=== PATIENT | female | born 1960 | race Hispanic/Latino ===

== ENCOUNTER 2021-08-11 15:52 | Emergency (ER) | payer OTHER ==
--- OUTSIDE RECORDS SUMMARY | 2021-08-11 15:56 | XMS REPORT | Continuity of Care Document ---
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 2020-01-24 30.11 kg/m2 [facility] 16:38:00 of Medicine Systolic blood 2019-11-18 143 mm[Hg] [facility] [employer] pressure 14:26:00 of Medicine Diastolic blood 2019-11-18 81 mm[Hg] [facility] pressure 14:26:00 of Medicine Heart rate 2019-11-18 58 /min [facility] 14:26:00 of Medicine Body weight 2019-11-18 72.576 kg [facility] 14:26:00 of Medicine BMI 2019-11-18 28.34 kg/m2 [facility] 14:26:00 of Medicine Systolic blood 2019-11-15 138 mm[Hg] [facility] [employer] pressure 15:53:00 of Medicine Diastolic blood 2019-11-15 81 mm[Hg] [facility] pressure 15:53:00 of Medicine Heart rate 2019-11-15 67 /min [facility] 15:53:00 of Medicine Body height 2019-11-15 160 cm [facility] 15:53:00 of Medicine Body weight 2019-11-15 72.576 kg [facility] 15:53:00 of Medicine BMI 2019-11-15 28.34 kg/m2 [facility] 15:53:00 of Medicine Procedures Procedure Date / Time Performed Performing Clinician Sourc e JAYLENE SCOPE 2021-06-03 17:25:00 Kasey Villar [facility] Lina egashley of [place] [facility] POCT URINALYSIS 2021-02-07 00:00:00 Jan [facility] of DIPSTICK Medicine AYAKA,POST-VOID 2021-02-07 00:00:00 Jan [facility] of RES,US,NON-IMG Medicine BASIC METABOLIC PANEL 2020-02-07 17:00:00 Jna Woodson [facility] LARYNGOSCOPY, 2019-11-15 17:55:00 Anselmo Lobo [facility] Jose Roberto hubbard of FLEXIBLE; DIAGNOSTIC Medicine Plan of Care Planned Activity Planned Date Details Comments Source Future Scheduled 2022-02-07 RENAL BILATERAL Expected: [facility] Test 00:00:00 [code = 64494] 02/07/2022 of Medicine (Approximate), Expires: 03/09/2022 Future Scheduled 2021-07-16 MRI LUMBAR SPINE WO 1 Occurrences [facility] Test 12:16:10 CONTRAST [code = starting of Medicine 84357-0] 07/16/2021 until 07/16/2022 Future Scheduled 2021-07-16 Screening for malignant [facility] Test 11:17:16 neoplasm of colon of Medicin e (procedure) [code = 188339831] Future Scheduled 2021-07-16 BMI FOLLOW UP PLAN [facility] [place] Test 11:17:16 [code = BMI FOLLOW UP of Med icine PLAN] Future Scheduled 2021-07-16 Hepatitis C screening [facility] Test 11:17:16 (procedure) [code = of Medic ine 963186410] Future Scheduled 2021-07-16 Human immunodeficiency B [facility] Test 11:17:16 virus screening of Medicine (procedure) [code = 769028013] Future Scheduled 2021-07-16 ZOSTER VACCINE (1 of 2) [facility] Test 11:17:16 [code = ZOSTER VACCINE of Me dicine (1 of 2)] Future Scheduled 2021-07-16 Screening for malignant [facility] Test 11:17:16 neoplasm of breast of Medici ne (procedure) [code = 771912234] Future Scheduled 2021-07-16 FLU VACCINE > 6 MONTHS [employer] Test 11:17:16 [code = FLU VACCINE > 6 of M edicine MONTHS] Future Scheduled 2021-07-16 COVID-19 Vaccine (3 - [employer] Test 11:17:16 Booster for Pfizer of Medici ne series) [code = COVID-19 Vaccine (3 - Booster for Pfizer series)] Future Scheduled 2021-07-16 Screening for malignant [facility] Test 11:17:16 neoplasm of cervix of Medici ne (procedure) [code = 993320148] Future Scheduled 2021-07-16 TETANUS SHOT (ADULT) [employer] [facility] Test 11:17:16 [code = TETANUS SHOT of Medi cine (ADULT)] Future Scheduled 2021-07-10 CT SINUS W FUSION [code 1 Occurrences [facility] Test 11:48:04 = 30414] starting of Medicine 07/10/2021 until 07/10/2022 Future Scheduled 2021-07-10 Screening for malignant [facility] [employer] Test 11:21:08 neoplasm of colon of Medicin e (procedure) [code = 655113083] Future Scheduled 2021-07-10 BMI FOLLOW UP PLAN [facility] Test 11:21:08 [code = BMI FOLLOW UP of Med icine PLAN] Future Scheduled 2021-07-10 Hepatitis C screening [facility] Test 11:21:08 (procedure) [code = of Medic ine 795644535] Future Scheduled 2021-07-10 Human immunodeficiency B [facility] Test 11:21:08 virus screening of Medicine (procedure) [code = 181138002] Future Scheduled 2021-07-10 ZOSTER VACCINE (1 of 2) [facility] [employer] Test 11:21:08 [code = ZOSTER VACCINE of Me dicine (1 of 2)] Future Scheduled 2021-07-10 Screening for malignant [facility] [employer] Test 11:21:08 neoplasm of breast of Medici ne (procedure) [code = 705602216] Future Scheduled 2021-07-10 FLU VACCINE > 6 MONTHS [employer] Test 11:21:08 [code = FLU VACCINE > 6 of M edicine MONTHS] Future Scheduled 2021-07-10 Screening for malignant [facility] [employer] Test 11:21:08 neoplasm of cervix of Medici ne (procedure) [code = 550820350] Future Scheduled 2021-07-10 TETANUS SHOT (ADULT) [employer] Test 11:21:08 [code = TETANUS SHOT of Medi cine (ADULT)] Future Scheduled 2021-06-03 Screening for malignant [facility] [employer] Test 12:27:02 neoplasm of colon of Medicin e (procedure) [code = 191871738] Future Scheduled 2021-06-03 BMI FOLLOW UP PLAN [employer] Test 12:27:02 [code = BMI FOLLOW UP of Med icine PLAN] Future Scheduled 2021-06-03 Hepatitis C screening [employer] Test 12:27:02 (procedure) [code = of Medic ine 646825433] Future Scheduled 2021-06-03 Human immunodeficiency [employer] Test 12:27:02 virus screening of Medicine (procedure) [code = 587244416] Future Scheduled 2021-06-03 ZOSTER VACCINE (1 of 2) [employer] Test 12:27:02 [code = ZOSTER VACCINE of Me dicine (1 of 2)] Future Scheduled 2021-06-03 Screening for malignant [facility] [employer] Test 12:27:02 neoplasm of breast of Medici ne (procedure) [code = 937932535] Future Scheduled 2021-06-03 FLU VACCINE > 6 MONTHS [employer] Test 12:27:02 [code = FLU VACCINE > 6 of M edicine MONTHS] Future Scheduled 2021-06-03 Screening for malignant [facility] [employer] Test 12:27:02 neoplasm of cervix of Medici ne (procedure) [code = 259630831] Future Scheduled 2021-06-03 TETANUS SHOT (ADULT) [employer] Test 12:27:02 [code = TETANUS SHOT of Medi cine (ADULT)] Future Scheduled 2021-06-03 Screening for malignant [facility] [employer] Test 12:27:02 neoplasm of colon of Medicin e (procedure) [code = 223449330] Future Scheduled 2021-06-03 BMI FOLLOW UP PLAN [employer] Test 12:27:02 [code = BMI FOLLOW UP of Med icine PLAN] Future Scheduled 2021-06-03 Hepatitis C screening [employer] Test 12:27:02 (procedure) [code = of Medic ine 263524990] Future Scheduled 2021-06-03 Human immunodeficiency [employer] Test 12:27:02 virus screening of Medicine (procedure) [code = 716717223] Future Scheduled 2021-06-03 ZOSTER VACCINE (1 of 2) [facility] Test 12:27:02 [code = ZOSTER VACCINE of Me dicine (1 of 2)] Future Scheduled 2021-06-03 Screening for malignant [facility] Test 12:27:02 neoplasm of breast of Medici ne (procedure) [code = 359250746] Future Scheduled 2021-06-03 FLU VACCINE > 6 MONTHS [facility] Test 12:27:02 [code = FLU VACCINE > 6 of M edicine MONTHS] Future Scheduled 2021-06-03 Screening for malignant [facility] Test 12:27:02 neoplasm of cervix of Medici ne (procedure) [code = 822191157] Future Scheduled 2021-06-03 TETANUS SHOT (ADULT) [facility] Test 12:27:02 [code = TETANUS SHOT of Medi cine (ADULT)] Future Scheduled 2021-05-27 [facility] IGE [code = Ordered: [facility] Test 12:27:33 NOCPT] 05/27/2021 of Medicine Future Scheduled 2021-05-27 IGE [code = 85310-9] Ordered: [facility] [employer] Test 12:27:33 05/27/2021 of Medicine Future Scheduled 2021-05-27 [facility] IGE [code = Ordered: [facility] Test 12:27:33 NOCPT] 05/27/2021 of Medicine Future Scheduled 2021-05-27 IGE [code = 72868-2] Ordered: [facility] [employer] Test 12:27:33 05/27/2021 of Medicine Future Scheduled 2021-05-27 DC PERCUTANEOUS TESTS Ordered: [employer] Test 12:01:12 W/ALLERGENIC EXTRACTS 05/27/2021 of Med icine [code = 10587] Future Scheduled 2021-05-27 DC PERCUTANEOUS TESTS Ordered: [employer] Test 12:01:12 W/ALLERGENIC EXTRACTS 05/27/2021 of Med icine [code = 41408] Future Scheduled 2021-05-27 Screening for malignant [facility] Test 10:54:41 neoplasm of colon of Medicin e (procedure) [code = 055594224] Future Scheduled 2021-05-27 BMI FOLLOW UP PLAN [facility] Test 10:54:41 [code = BMI FOLLOW UP of Med icine PLAN] Future Scheduled 2021-05-27 Hepatitis C screening [employer] Test 10:54:41 (procedure) [code = of Medic ine 364226808] Future Scheduled 2021-05-27 Human immunodeficiency [employer] Test 10:54:41 virus screening of Medicine (procedure) [code = 523803212] Future Scheduled 2021-05-27 ZOSTER VACCINE (1 of 2) [facility] Test 10:54:41 [code = ZOSTER VACCINE of Me dicine (1 of 2)] Future Scheduled 2021-05-27 Screening for malignant [facility] [employer] Test 10:54:41 neoplasm of breast of Medici ne (procedure) [code = 160627938] Future Scheduled 2021-05-27 FLU VACCINE > 6 MONTHS [employer] Test 10:54:41 [code = FLU VACCINE > 6 of M edicine MONTHS] Future Scheduled 2021-05-27 Screening for malignant [facility] [employer] Test 10:54:41 neoplasm of cervix of Medici ne (procedure) [code = 559434965] Future Scheduled 2021-05-27 TETANUS SHOT (ADULT) [facility] Test 10:54:41 [code = TETANUS SHOT of Medi cine (ADULT)] Future Scheduled 2021-05-27 Screening for malignant [facility] [employer] Test 10:54:41 neoplasm of colon of Medicin e (procedure) [code = 982475130] Future Scheduled 2021-05-27 BMI FOLLOW UP PLAN [facility] [employer] [facility] 10:54:41 [code = BMI FOLLOW UP of Med icine PLAN] Future Scheduled 2021-05-27 Hepatitis C screening [facility] [employer] Test 10:54:41 (procedure) [code = of Medic ine 932191065] Future Scheduled 2021-05-27 Human immunodeficiency [employer] Test 10:54:41 virus screening of Medicine (procedure) [code = 210653177] Future Scheduled 2021-05-27 ZOSTER VACCINE (1 of 2) [employer] Test 10:54:41 [code = ZOSTER VACCINE of Me dicine (1 of 2)] Future Scheduled 2021-05-27 Screening for malignant [facility] [employer] Test 10:54:41 neoplasm of breast of Medici ne (procedure) [code = 420647555] Future Scheduled 2021-05-27 FLU VACCINE > 6 MONTHS [employer] Test 10:54:41 [code = FLU VACCINE > 6 of M edicine MONTHS] Future Scheduled 2021-05-27 Screening for malignant [employer] Test 10:54:41 neoplasm of cervix of Medici ne (procedure) [code = 810411687] Future Scheduled 2021-05-27 TETANUS SHOT (ADULT) [employer] Test 10:54:41 [code = TETANUS SHOT of Medi cine (ADULT)] Future Scheduled 2021-05-16 Screening for malignant [facility] [employer] Test 13:31:36 neoplasm of colon of Medicin e (procedure) [code = 177854415] Future Scheduled 2021-05-16 BMI FOLLOW UP PLAN [employer] Test 13:31:36 [code = BMI FOLLOW UP of Med icine PLAN] Future Scheduled 2021-05-16 Hepatitis C screening [employer] Test 13:31:36 (procedure) [code = of Medic ine 242313482] Future Scheduled 2021-05-16 Human immunodeficiency [facility] Test 13:31:36 virus screening of Medicine (procedure) [code = 784182429] Future Scheduled 2021-05-16 ZOSTER VACCINE (1 of 2) [facility] [employer] Test 13:31:36 [code = ZOSTER VACCINE of Ut dicine (1 of 2)] Future Scheduled 2021-05-16 Screening for malignant [facility] [employer] Test 13:31:36 neoplasm of breast of Medici ne (procedure) [code = 468569519] Future Scheduled 2021-05-16 FLU VACCINE > 6 MONTHS [employer] Test 13:31:36 [code = FLU VACCINE > 6 of M edicine MONTHS] Future Scheduled 2021-05-16 Screening for malignant [facility] [employer] Test 13:31:36 neoplasm of cervix of Medici ne (procedure) [code = 437919324] Future Scheduled 2021-05-16 TETANUS SHOT (ADULT) [employer] Test 13:31:36 [code = TETANUS SHOT of Medi cine (ADULT)] Future Scheduled 2021-05-16 Screening for malignant [facility] [employer] Test 13:31:36 neoplasm of colon of Medicin e (procedure) [code = 689878678] Future Scheduled 2021-05-16 BMI FOLLOW UP PLAN [employer] Test 13:31:36 [code = BMI FOLLOW UP of Med icine PLAN] Future Scheduled 2021-05-16 Hepatitis C screening [employer] Test 13:31:36 (procedure) [code = of Medic ine 368618283] Future Scheduled 2021-05-16 Human immunodeficiency [employer] Test 13:31:36 virus screening of Medicine (procedure) [code = 753967717] Future Scheduled 2021-05-16 ZOSTER VACCINE (1 of 2) [facility] [employer] Test 13:31:36 [code = ZOSTER VACCINE of Me dicine (1 of 2)] Future Scheduled 2021-05-16 Screening for malignant [facility] Test 13:31:36 neoplasm of breast of Medici ne (procedure) [code = 856106648] Future Scheduled 2021-05-16 FLU VACCINE > 6 MONTHS [employer] Test 13:31:36 [code = FLU VACCINE > 6 of M edicine MONTHS] Future Scheduled 2021-05-16 Screening for malignant [facility] Test 13:31:36 neoplasm of cervix of Medici ne (procedure) [code = 902974983] Future Scheduled 2021-05-16 TETANUS SHOT (ADULT) [facility] Test 13:31:36 [code = TETANUS SHOT of Medi cine (ADULT)] Future Scheduled 2021-02-07 Screening for malignant [facility] Test 13:04:50 neoplasm of colon of Medicin e (procedure) [code = 130811413] Future Scheduled 2021-02-07 [facility] FOLLOW UP PL[facility] Test 13:04:50 [code = BMI FOLLOW UP of Med icine PLAN] Future Scheduled 2021-02-07 Hepatitis C screening [facility] Test 13:04:50 (procedure) [code = of Medic ine 295136962] Future Scheduled 2021-02-07 [facility] 13:04:[facility] virus screening of Medicine (procedure) [code = 129355368] Future Scheduled 2021-02-07 ZOSTER VACCINE (1 of 2) [facility] Test 13:04:50 [code = ZOSTER VACCINE of Me dicine (1 of 2)] Future Scheduled 2021-02-07 [facility] 13:04:50 neoplasm of breast of Medici ne (procedure) [code = 043620180] Future Scheduled 2021-02-07 FLU VACCINE > 6 MONTHS [employer] Test 13:04:50 [code = FLU VACCINE > 6 of M edicine MONTHS] Future Scheduled 2021-02-07 Screening for malignant [facility] Test 13:04:50 neoplasm of cervix of Medici ne (procedure) [code = 806742092] Future Scheduled 2021-02-07 TETANUS SHOT (ADULT) [employer] Test 13:04:50 [code = TETANUS SHOT of Medi cine (ADULT)] Future Scheduled 2021-02-07 BASIC METABOLIC PANEL Ordered: [employer] Test 11:54:43 [code = 19815-2] 02/07/2021 of Medicine Diagnostic Test 2021-02-06 US RENAL BILATERAL Expected: [facility] Pending 00:00:00 [code = 55315] 02/06/2021 of Medicine (Approximate), Expires: 03/08/2021 Future Scheduled COLON CANCER SCREENING: [facility] Test COLONOSCOPY [code = of Medic ine COLON CANCER SCREENING: COLONOSCOPY] Future Scheduled BMI FOLLOW UP PLAN [employer] Test [code = BMI FOLLOW UP of Med icine PLAN] Future Scheduled HEPATITIS C SCREENING [employer] Test [code = HEPATITIS C of Medic ine SCREENING] Future Scheduled HIV SCREENING [code = [employer] [facility] HIV SCREENING] of Medicine Future Scheduled FLU VACCINE > 6 MONTHS [employer] Test [code = FLU VACCINE > 6 of M edicine MONTHS] Future Scheduled MAMMOGRAM ANNUAL [code [employer] Test = MAMMOGRAM ANNUAL] of Medic ine Future Scheduled CERVICAL CANCER [facility] Test SCREENING 3 YEAR FOLLOW of M edicine UP [code = CERVICAL CANCER SCREENING 3 YEAR FOLLOW UP] Future Scheduled TETANUS SHOT (ADULT) [employer] Test [code = TETANUS SHOT of Medi cine (ADULT)] Future Scheduled COLON CANCER SCREENING: [facility] Test COLONOSCOPY [code = of Medic ine COLON CANCER SCREENING: COLONOSCOPY] Future Scheduled BMI FOLLOW UP PLAN [employer] Test [code = BMI FOLLOW UP of Med icine PLAN] Future Scheduled HEPATITIS C SCREENING [employer] Test [code = HEPATITIS C of Medic ine SCREENING] Future Scheduled HIV SCREENING [code = [employer] [facility] HIV SCREENING] of Medicine Future Scheduled FLU VACCINE > 6 MONTHS [employer] Test [code = FLU VACCINE > 6 of M edicine MONTHS] Future Scheduled MAMMOGRAM ANNUAL [code [employer] Test = MAMMOGRAM ANNUAL] of Medic ine Future Scheduled CERVICAL CANCER [facility] Test SCREENING 3 YEAR FOLLOW of M edicine UP [code = CERVICAL CANCER SCREENING 3 YEAR FOLLOW UP] Future Scheduled TETANUS SHOT (ADULT) [employer] Test [code = TETANUS SHOT of Medi cine (ADULT)] Future Scheduled LARYNGOSCOPY, FLEXIBLE Ordered: [employer] Test OR RIGID TELESCOPIC, 01/24/2020 of Medi cine WITH STROBOSCOPY [code = 57334] Future Scheduled COLON CANCER SCREENING: [facility] Test COLONOSCOPY [code = of Medic ine COLON CANCER SCREENING: COLONOSCOPY] Future Scheduled BMI FOLLOW UP PLAN [employer] Test [code = BMI FOLLOW UP of Med icine PLAN] Future Scheduled HEPATITIS C SCREENING [employer] Test [code = HEPATITIS C of Medic ine SCREENING] Future Scheduled HIV SCREENING [code = [employer] [facility] HIV SCREENING] of Medicine Future Scheduled MAMMOGRAM ANNUAL [code [employer] Test = MAMMOGRAM ANNUAL] of Medic ine Future Scheduled FLU VACCINE > 6 MONTHS [employer] Test [code = FLU VACCINE > 6 of M edicine MONTHS] Future Scheduled CERVICAL CANCER [facility] Test SCREENING 3 YEAR FOLLOW of M edicine UP [code = CERVICAL CANCER SCREENING 3 YEAR FOLLOW UP] Future Scheduled TETANUS SHOT (ADULT) [employer] Test [code = TETANUS SHOT of Medi cine (ADULT)] Future Scheduled COLON CANCER SCREENING: [facility] Test COLONOSCOPY [code = of Medic ine COLON CANCER SCREENING: COLONOSCOPY] Future Scheduled BMI FOLLOW UP PLAN [employer] Test [code = BMI FOLLOW UP of Med icine PLAN] Future Scheduled HEPATITIS C SCREENING [employer] Test [code = HEPATITIS C of Medic ine SCREENING] Future Scheduled HIV SCREENING [code = [employer] [facility] HIV SCREENING] of Medicine Future Scheduled MAMMOGRAM ANNUAL [code [employer] Test = MAMMOGRAM ANNUAL] of Medic ine Future Scheduled FLU VACCINE > 6 MONTHS [employer] Test [code = FLU VACCINE > 6 of M edicine MONTHS] Future Scheduled CERVICAL CANCER [facility] Test SCREENING 3 YEAR FOLLOW of M edicine UP [code = CERVICAL CANCER SCREENING 3 YEAR FOLLOW UP] Future Scheduled TETANUS SHOT (ADULT) [employer] Test [code = TETANUS SHOT of Medi cine (ADULT)] Future Scheduled SUBLINGUAL Ordered: [facility] Test IMMUNOTHERAPY THERAPY 06/25/2020 of Med icine (SLIT) 16 TO 20 [code = SLIT20] Future Scheduled COLON CANCER SCREENING: [facility] Test COLONOSCOPY [code = of Medic ine COLON CANCER SCREENING: COLONOSCOPY] Future Scheduled BMI FOLLOW UP PLAN [employer] Test [code = BMI FOLLOW UP of Med icine PLAN] Future Scheduled HEPATITIS C SCREENING [employer] Test [code = HEPATITIS C of Medic ine SCREENING] Future Scheduled HIV SCREENING [code = [employer] [facility] HIV SCREENING] of Medicine Future Scheduled ZOSTER VACCINE (1 of 2) [facility] Test [code = ZOSTER VACCINE of Me dicine (1 of 2)] Future Scheduled MAMMOGRAM ANNUAL [code [facility] Test = MAMMOGRAM ANNUAL] of Medic ine Future Scheduled FLU VACCINE > 6 MONTHS [facility] Test [code = FLU VACCINE > 6 of M edicine MONTHS] Future Scheduled CERVICAL CANCER [facility] ollege Test SCREENING 3 YEAR FOLLOW of M edicine UP [code = CERVICAL CANCER SCREENING 3 YEAR FOLLOW UP] Future Scheduled TETANUS SHOT (ADULT) [facility] Test [code = TETANUS SHOT of Medi cine (ADULT)] Encounters Start End Encounter Admission Attending Care Care Encounter Source Date/Time Date/Time Type Type Clinicians Facility Department ID 2021-06-11 Outpatient [facility] Surgery [id number] [facility] 15:11:30 TOMASZ 2021-07-16 2021-07-16 Office DYLAN OSEI [id number] [facility] 10:51:39 16:25:13 Visit ANSELMO AMBULATOR 350.1.13.21 College Y 0.2.7.2.686 of [id number] Medi ирина 805 e 2021-07-10 2021-07-10 Office TIFFANI LEWIS [id number] [facility] 11:16:59 13:49:14 Visit AMBULATOR 350.1.13.21 College Y 0.2.7.2.686 of [id number] Medi ирина 305 e 2021-06-03 2021-06-03 Office DYLAN Villar [id number] [facility] 10:14:41 11:11:08 Visit Kasey AMBULATOR 350.1.13.21 College [place] 0.2.7.2.686 of [id number] Medi ирина 800 e 2021-05-27 2021-05-27 Office Tiffani Lewis [id number] [facility] 10:56:01 12:39:50 Visit AMBULATOR 350.1.13.21 College Y 0.2.7.2.686 of [id number] Medi ирина 305 e 2021-05-16 2021-05-16 Office JULIAN OseiM [id number] [facility] 10:56:27 12:33:20 Visit Anselmo AMBULATOR 350.1.13.21 College Y 0.2.7.2.686 of [id number] Medi ирина 805 e 2021-05-07 2021-05-07 Outpatient LEEROY [facility] [id number] [facility] 12:44:56 13:01:48 SOELDAD schilling of Medicin e 2021-02-07 2021-02-07 Outpatient [facility] [id number] [facility] 10:26:05 15:05:23 Colleg e of Medicin e 2021-02-07 2021-02-07 Office [facility] [id number] [facility] 10:27:03 12:13:07 Visit JAN AMBULATOR 350.1.13.21 College Y 0.2.7.2.686 of [id number] [facility] ирина 300 e 2021-01-28 2021-01-28 Outpatient Ally MEYERS [facility] [id number] [employer] 12:30:00 12:30:[address] [facility] 2021-01-07 2021-01-07 Outpatient [facility] [id number] [employer] 13:40:00 13:40:00 [facility] 2020-08-20 2020-08-20 Outpatient [facility] [id number] [facility] 12:41:10 12:41:22 ANDREEA Collejose e of Medicin e 2020-06-25 2020-06-25 Office [place], JULIAN [id number] 16:00:00 16:30:00 Visit Andreea AMBULATOR 350.1.13.21 Nita Y 0.2.7.2.686 [id number] 2020-06-25 2020-06-25 Office JULIAN [place] [id number] [facility] 16:00:00 16:30:00 Visit Andreea AMBULATOR 350.1.13.21 College Nita Y 0.2.7.2.686 of [id number] Medi ирина 800 e 2020-02-07 2020-02-07 Office DYLAN Woodson 1.2.840.114 [id number] 10:24:35 12:31:37 Visit Jan Valentino AMBULATOR 350.1.13.21 Y 0.2.7.2.686 [id number] 2020-02-07 2020-02-07 Office WoodsonDYLAN 1.2.840.114 [id number] [facility] 10:24:35 12:31:37 Visit Jan Valentino AMBULATOR 350.1.13.21 College Y 0.2.7.2.686 of [id number] [facility] ирина 300 e 2020-02-01 2020-02-01 Outpatient SLE SLE [id number] SLE 00:00:00 00:00:00 2020-01-24 2020-01-24 Office DYLAN Lobo 1.2.840.114 [id number] [facility] 10:42:41 11:57:01 Visit Anselmo AMBULATOR 350.1.13.21 College Y 0.2.7.2.686 of [id number] Medi ирина 800 e 2019-11-18 2019-11-18 Office DYLAN [place] 1.2.840.114 [id number] [facility] 09:16:59 09:46:59 Visit Andreea AMBULATOR 350.1.13.21 College Nita Y 0.2.7.2.686 of [id number] Medi ирина 800 e 2019-11-15 2019-11-15 Office DYLAN Lobo [id number] [facility] 10:44:59 11:43:03 Visit Anselmo AMBULATOR 350.1.13.21 College Y 0.2.7.2.686 of [id number] [facility] ирина 800 e Results Test Description Test Time Test Comments Results Result Comments Source POCT URINALYSIS DIPSTICK 2021-02-07 00:00:00 Test Item Value Reference Range Interpretation Comme nts COLOR UA (test code = 5778-6) Yellow YELLOW/STRAW CLARITY UA (test code = 14528-6) Clear CLEAR GLUCOSE UA (test code = 5792-7) Negative NEGATIVE BILIRUBIN UA (test code = 5770-3) Negative NEGATIVE KETONES UA (test code = 59655-3) Negative NEGATIVE SPECIFIC GRAVITY UA (test code = 5811-5) 1.005-1.035 BLOOD UA (test code = 5794-3) Negative NEGATIVE PH UA (test code = 5803-2) 5.0-9.0 PROTEIN UA (test code = 5804-0) Negative NEGATIVE UROBILINOGEN UA (test code = 5818-0) 0.02 E.U/DL NORMAL MG/DL LEUKOCYTE ESTERASE UA (test code = 5799-2) Negative NEGATIVE NITRITE UA (test code = 5802-4) Negative NEGATIVE REDUCING SUBSTANCES URINE (test code = 42004-7) [facility],US,[id number] 00:00:00 Test Item Value Reference Range Interpretation Comments PVR (test code = 6116) cc/ml [facility] [id number] 09:46:00Surgical Pathology Report Case: [id number] Authorizing Provider: Tomasz Carlos, Collected: 03/01/2020 12:28 PM [facility]ing[facility] Received: 03/01/2020 02:54 PM SERVICES Pathologist: Martha Slater MD Specimens: A) - Biopsy, Gastric, random via forcep B) - Polyp, Gastric, via forcep A. STOMACH, RANDOM BIOPSIES: - CHRONIC INACTIVE GASTRITISB. STOMACH, POLYPECTOMY: - FUNDIC GLAND POLYPNZK/pl Signing Pathologist Direct Phone Line: [phone] signed by Martha Sltaer MD on 03/02/2020 at 9:46 [id number] a1Ivrwlomaxolubvhz reflux disease, esophagitis presence not specified [K21.9],Epigastric pain [R10.13]A. Gastric biopsyB. Gastric polypA. Received in formalin labeled with thepatient's name, accession number and "gastric biopsy" are 3 conroy-pink tissue fragments measuring up to 0.3 cm in greatest dimension which are filtered and submitted in toto in A1.B. Received in formalin labeled with the patient's name, accession number and "gastric polyp" are 4 conroy-pink tissue fragments measuring up to 0.3 cm in greatest dimension which are filtered and submitted in toto in B1.Pilar A rguelles, PA ([facility])aboriginal ceremonial celebrant. Gastric biopsies have antral and oxyntic mucosa with mild increased chronic inflammatory cells in lamina propria. No Helicobacter pylori are seen on H&E or Warthin-starry stain. No intestinal metaplasia, dysplasia or malignancy is identified. B. Gastric polyp is fundic gland polyp. No Helicobacter pylori are seen on H&E or Warthin-starry stains. No intestinal metaplasia, dysplasia or malignancy seen. The interpretation of this case included the use of special stains.Control Slides Examined: In-house known positive controls were evaluated along with the test tissue. These control slides run alongside of the patients sample show appropriate staining. Internal positive and negative controls when available are evaluated.BASIC METABOLIC [id number] 11:07:56 Test Item Value Reference Range Interpretation Comments GLUCOSE (test code = See_Comment [Autom ated message] The 2345-7) system which ge nerated this result tra nsmitted reference range : 70 - 99 MG/DL. The refe rence range was not u sed to interpret this result as normal/abnormal . BLOOD UREA NITROGEN See_Comment [Automa jerome message] The (test code = 3091-6) system which generated this result tra nsmitted reference range : 6 - 20 MG/DL. The refe rence range was not u sed to interpret this result as normal/abnormal . CREATININE (test code = See_Comment [Au tomated message] The 2160-0) system which ge nerated this result tra nsmitted reference range : 0.60 - 1.30 MG/DL. The reference range was not u sed to interpret this result as normal/abnormal . EGFR AA (test code = See_Comment [Autom ated message] The 29634-4) system which ge nerated this result tra nsmitted reference range : >60 ML/MIN/1.73. Th e reference range was not used to interpr et this result as normal/abnormal . EGFR (test code = See_Comment [Automate d message] The 03664-7) system which ge nerated this result tra nsmitted reference range : >60 ML/MIN/1.73. Th e reference range was not used to interpr et this result as normal/abnormal . SODIUM (test code = See_Comment [Automa jerome message] The 2951-2) system which ge nerated this result tra nsmitted reference range : 133 - 146 MEQ/L. The reference range was not u sed to interpret this result as normal/abnormal . POTASSIUM (test code = See_Comment [Aut omated message] The 2822-11) system which ge nerated this result tra nsmitted reference range : 3.5 - 5.4 MEQ/L. The reference range was not u sed to interpret this result as normal/abnormal . CHLORIDE (test code = See_Comment [Auto mated message] The ) system which ge nerated this result tra nsmitted reference range : 95 - 107 MEQ/L. The refe rence range was not u sed to interpret this result as normal/abnormal . CO2 (test code = See_Comment [Automated message] The 1963-04) system which ge nerated this result tra nsmitted reference range : 19 - 31 MEQ/L. The refe rence range was not u sed to interpret this result as normal/abnormal . CALCIUM (test code = See_Comment Unless Otherwise 40381-6) Indicated, All Testing Performed At: [facility], [address] [place] [address] Laboratory D irector: Santiago reyes M.D. CLIA Number [id number] Cap Accreditation N o. [id number] [Auto mated message] The sy stem which generated this result transmitted ref erence range: 8.5 - 10 .5 MG/DL. The reference r michelle was not used to int erpret this result as normal/abnormal . [facility] HospitalLARYNGOSCOPY, FLEXIBLE; [id number] 17:55:00 IMAGES ARE AVAILABLE FOR VIEWING.[facility]
[2021-08-11 16:34] LABS: Urine Blood Negative (Negative); Urine Glucose Negative (Negative); Urine Protein 1+ (Negative); Urine pH 8.5 (5.0-7.0)
[2021-08-11 16:54] LABS: Urine Bacteria 20-50 /HPF (<20); Urine RBC <5 /HPF (NONE SEEN)
[2021-08-11 16:55] LABS: Urine Amorphous Sediment TRACE /HPF (NONE SEEN)
[2021-08-11 17:02] LABS: Absolute Lymphocytes (CBC) 3.1 K/uL (0.7-4.9); Basophils % 0.7 % (0-1.3); Hematocrit 40.2 % (36.0-45.0); Lymphocytes % 43.6 % (15.3-44.8); MPV 7.7 fL (7.6-11.3); RBC Red Blood Cell Count 4.35 M/uL (3.86-4.86)
[2021-08-11 17:18] LABS: Albumin 3.6 g/dL (3.4-5.0); Bilirubin Direct 0.1 mg/dL (0-0.2); Bilirubin Total 0.4 mg/dL (0.2-1.0); Potassium 3.7 mmol/L (3.5-5.1); Protein, Total 7.7 g/dL (6.4-8.2)
[2021-08-11] MEDS ORDERED: NA CHLORIDE 0.9% 1,000 ML ONE (17:49)
[2021-08-11] MEDS ORDERED: KETOROLAC 30 MG/ML INJ ONE (17:49)
--- NOTE | 2021-08-11 18:19 | RAD REPORT ---
EXAM DESCRIPTION: CT - Abdomen Pelvis W Contrast - 08/11/2021 5:33 pm CLINICAL HISTORY: ABD PAIN COMPARISON: CT study March 19 TECHNIQUE: Biphasic, helical CT imaging of the abdomen and pelvis was performed following 100 ml non -ionic IV contrast. No oral contrast administered. All CT scans are performed using dose optimization technique as appropriate and may include automated exposure control or mA/KV adjustment according to patient size. FINDINGS: No suspicious findings in the lung bases. The liver, spleen, and pancreas show no suspicious findings. Gallbladder and biliary tree are also wi thout suspicious finding. Symmetric renal function is seen with no hydronephrosis or suspicious renal mass. Patient has numerou s bilateral parapelvic cysts as a normal variant. No pyelonephritis or acute parenchymal process. No bladder abnormalities. No adrenal abnormalities. Uterus is absent. Ovaries are absent or atrophic. No adnexal abnormality. No dilated bowel loops or bowel wall thickening. Cecum is low-lying in the pelvic floor. No appendici tis. No free air, free fluid or inflammatory stranding. No hernia, mass or bulky lymphadenopathy. No suspicious bony findings. IMPRESSION: Contrast enhanced CT abdomen and pelvis showing no acute or emergent finding. Above detailed findings are without significant change from March 19 imaging.
--- NOTE | 2021-08-11 18:55 | ER ---
Nurse's Notes [facility] Name: Andree Rene Age: 61 yrs Sex: Female : 1960 Arrival Date: 08/11/2021 Time: 15:54 Bed 5 Private MD: Diagnosis: UTI/ Urinary tract infection, site not specified;Other abdominal pain Presentation: 08/11 16:10 Chief complaint: Patient states: LLQ pain and lower back pain began yesterday, states vg1 after urination has 'sharp/pressure' near LLQ. Denies burning upon urination or NVD. Coronavirus screen: Vaccine status: Patient reports receiving the 2nd dose of the covid vaccine. Client denies travel out of the [place] in the last 14 days. Ebola Screen: Patient negative for fever greater than or equal to 101.5 degrees Fahrenheit, and additional compatible Ebola Virus Disease symptoms. Initial Sepsis Screen: Does the patient meet any 2 criteria? No. Patient's initial sepsis screen is negative. Does the patient have a suspected source of infection? No. Patient's initial sepsis screen is negative. Risk Assessment: Do you want to hurt yourself or someone else? Patient reports no desire to harm self or others. Onset of symptoms was August 10, 2021. 16:10 Method Of Arrival: Ambulatory vg1 16:10 Acuity: LACIE 3 vg1 Triage Assessment: 16:12 General: Appears in no apparent distress. uncomfortable, Behavior is cooperative. Pain: vg1 Complains of pain in posterior aspect of left lateral abdomen and left lower quadrant Pain currently is 9 out of 10 on a pain scale. Quality of pain is described as sharp. Musculoskeletal: Circulation, motion, and sensation intact. Historical: - Allergies: 16:12 PENICILLINS; vg1 16:12 Codeine; vg1 - Home Meds: 16:12 alendronate oral [Active]; cetirizine oral [Active]; Omeprazole Oral [Active]; vg1 duloxetine oral [Active]; potassium citrate oral [Active]; Flonase Nasal [Active]; Trazodone Oral [Active]; Baclofen Oral [Active]; - PMHx: 16:12 GERD; Anxiety; Chronic Back Pain; vg1 - Immunization history:: Client reports receiving the 2nd dose of the Covid vaccine. - Social history:: Smoking status: Patient denies any tobacco usage or history of. Screenin:26 Abuse screen: Denies threats or abuse. Denies injuries from another. Nutritional iw screening: No deficits noted. Tuberculosis screening: No symptoms or risk factors identified. Fall Risk IV access (20 points). Assessment: 17:25 General: Appears in no apparent distress. Behavior is calm, cooperative. Pain: iw Complains of pain in left lower quadrant and posterior aspect of left lateral abdomen. Neuro: Level of Consciousness is awake, alert, obeys commands, Oriented to person, place, time, situation, Moves all extremities. Full function. Cardiovascular: Patient's skin is warm and dry. Respiratory: Respiratory effort is even, unlabored, Respiratory pattern is regular, symmetrical. GI: Reports lower abdominal pain. Derm: Skin is intact, is healthy with good turgor. Vital Signs: 16:10 BP 117 / 51; Pulse 73; Resp 18; Temp 98.0; Pulse Ox 100% ; Weight 77.11 kg; Height 5 vg1 ft. 3 in. (160.02 cm); Pain 9/10; 18:40 BP 138 / 64; Pulse 68; Resp 17; Pulse Ox 100% ; jl7 16:10 Body Mass Index 30.11 (77.11 kg, 160.02 cm) vg1 ED Course: 15:54 Patient arrived in ED. ds1 16:12 Triage completed. vg1 16:12 Arm band placed on. vg1 16:40 Vianey Jimenez FNP-C is PHCP. kb 16:40 Arpit Eastman MD is Attending Physician. kb 16:45 Initial lab(s) drawn, by nm, sent to lab. Inserted saline lock: 20 gauge in left vg1 antecubital area, using aseptic technique. Blood collected. 17:25 Chey Black, RN is Primary Nurse. iw 17:33 CT Abd/Pelvis - IV Contrast Only In Process Unspecified. EDMS 18:15 PHCP role handed off by Vianey Jimenez FNP-C pm1 18:15 Brandon Barger NP is PHCP. pm1 18:21 Patient has correct armband on for positive identification. Placed in gown. Bed in low jl7 position. Call light in reach. Side rails up X 1. Pulse ox on. NIBP on. Warm blanket given. 19:12 No provider procedures requiring assistance completed. IV discontinued, intact, iw bleeding controlled, No redness/swelling at site. Pressure dressing applied. Administered Medications: 17:54 Drug: NS 0.9% 1000 ml Route: IV; Rate: 1000 ml; Site: left antecubital; iw 19:00 Follow up: IV Status: Completed infusion iw 17:54 Drug: Ketorolac 15 mg Route: IVP; Site: left antecubital; iw 18:10 Follow up: Response: No adverse reaction iw 18:53 Drug: Rocephin (cefTRIAXone) 1 grams Route: IV; Rate: calculated rate; Site: left iw antecubital; 19:00 Follow up: IV Status: Completed infusion iw 19:10 Drug: Ultracet (tramadol-acetaminophen) 1 tabs Route: PO; iw 19:12 Follow up: Response: No adverse reaction iw Outcome: 18:54 Discharge ordered by MD. pm1 19:12 Discharged to home ambulatory, with family. iw 19:12 Condition: good 19:12 Discharge instructions given to patient, family, Instructed on discharge instructions, follow up and referral plans. medication usage, Demonstrated understanding of instructions, follow-up care, medications, Prescriptions given X 3. 19:12 Patient left the ED. iw Signatures: Dispatcher [employer] EDMS Vianey Jimenez, SLAG SKIMMER-C SLAG SKIMMER-Erika Mullen ds1 Chey Black, BACILIO RN iw Brandon Barger, MERLINE ASSOCIATE SOFTWARE APPLICATION ENGINEER pm1 Johana Roldan RN RN jl7 Maia Adam RN RN vg1 Corrections: (The following items were deleted from the chart) 16:14 16:12 Allergies: No Known Allergies; vg1 vg1
--- NOTE | 2021-08-11 18:55 | EDPHYS ---
Physician Documentation [facility] Name: Andree Rene Age: 61 yrs Sex: Female : 1960 Arrival Date: 08/11/2021 Time: 15:54 Bed 5 Private MD: ED Physician Arpit Eastman HPI: 08/11 16:48 This 61 yrs old Female presents to ER via Ambulatory with complaints of Back kb Pain, Pelvic Pain. 16:48 The patient presents with pain that is acute. The symptoms are located in the right mid kb back. The patient has not recently seen a physician. 17:05 Onset: The symptoms/episode began/occurred yesterday. The pain does not radiate. kb Associated signs and symptoms: The patient has no apparent associated signs or symptoms. The problem was sustained from unknown cause. Modifying factors: The patient symptoms are alleviated by nothing, the patient symptoms are aggravated by any movement. Severity of symptoms: At their worst the symptoms were moderate, in the emergency department the symptoms are unchanged. The patient has not experienced similar symptoms in the past. Pt reports pain to mid back on right side that started yesterday. Also reports LLQ pain after urinating. . Historical: - Allergies: 16:12 PENICILLINS; vg1 16:12 Codeine; vg1 - Home Meds: 16:12 alendronate oral [Active]; cetirizine oral [Active]; Omeprazole Oral [Active]; vg1 duloxetine oral [Active]; potassium citrate oral [Active]; Flonase Nasal [Active]; Trazodone Oral [Active]; Baclofen Oral [Active]; - PMHx: 16:12 GERD; Anxiety; Chronic Back Pain; vg1 - Immunization history:: Client reports receiving the 2nd dose of the Covid vaccine. - Social history:: Smoking status: Patient denies any tobacco usage or history of. ROS: 16:46 Constitutional: Negative for fever, chills, and weight loss. kb 16:46 Abdomen/GI: Positive for abdominal pain, Negative for nausea, vomiting, and diarrhea. 16:46 Back: Positive for pain at rest. 16:46 All other systems are negative. Exam: 16:46 Constitutional: This is a well developed, well nourished patient who is awake, alert, kb and in no acute distress. Head/Face: Normocephalic, atraumatic. ENT: Moist Mucous membranes Cardiovascular: Regular rate and rhythm with a normal S1 and S2. No gallops, murmurs, or rubs. No pulse deficits. Respiratory: Respirations even and unlabored. No increased work of breathing, no retractions or nasal flaring. Skin: Warm, dry with normal turgor. Normal color. MS/ Extremity: Pulses equal, no cyanosis. Neurovascular intact. Full, normal range of motion. Neuro: Awake and alert, GCS 15, oriented to person, place, time, and situation. Moves all extremities. Normal gait. Psych: Awake, alert, with orientation to person, place and time. Behavior, mood, and affect are within normal limits. 16:46 Abdomen/GI: Inspection: abdomen appears normal, Bowel sounds: normal, in all quadrants, Palpation: soft, in all quadrants, moderate abdominal tenderness, in the left lower quadrant. 16:46 Back: pain, that is moderate, of the right mid back, ROM is normal, normal spinal alignment noted, vertebral tenderness, is not appreciated. Vital Signs: 16:10 BP 117 / 51; Pulse 73; Resp 18; Temp 98.0; Pulse Ox 100% ; Weight 77.11 kg; Height 5 vg1 ft. 3 in. (160.02 cm); Pain 9/10; 18:40 BP 138 / 64; Pulse 68; Resp 17; Pulse Ox 100% ; jl7 16:10 Body Mass Index 30.11 (77.11 kg, 160.02 cm) vg1 MDM: 16:40 Patient medically screened. kb 16:46 Data reviewed: vital signs, nurses notes. Data interpreted: Pulse oximetry: on room air kb is 100 %. Interpretation: normal. 17:59 Transition of care: After a detail discussion of the patient's case, care is kb transferred to Brandon Barger NP. 18:51 Counseling: I had a detailed discussion with the patient and/or guardian regarding: the pm1 historical points, exam findings, and any diagnostic results supporting the discharge/admit diagnosis, lab results, radiology results, the need for outpatient follow up, to return to the emergency department if symptoms worsen or persist or if there are any questions or concerns that arise at home. 08/11 16:25 Order name: Urine Microscopic Only; Complete Time: 17:06 kb 08/11 16:34 Order name: Urine Dipstick-Ancillary; Complete Time: 16:34 EDMS 08/11 16:38 Order name: Basic Metabolic Panel; Complete Time: 17:20 kb 08/11 16:38 Order name: CBC with Diff; Complete Time: 17:06 kb 08/11 16:38 Order name: Hepatic Function; Complete Time: 17:20 kb 08/11 16:38 Order name: Lipase; Complete Time: 17:20 kb 08/11 16:25 Order name: Urine Dipstick-Ancillary (obtain specimen); Complete Time: 16:33 kb 08/11 16:38 Order name: IV Saline Lock; Complete Time: 16:45 kb 08/11 16:38 Order name: CT Abd/Pelvis - IV Contrast Only; Complete Time: 18:31 kb 08/11 16:57 Order name: Urine Culture EDKS 08/11 16:38 Order name: Labs collected and sent; Complete Time: 16:45 kb Administered Medications: 17:54 Drug: NS 0.9% 1000 ml Route: IV; Rate: 1000 ml; Site: left antecubital; iw 19:00 Follow up: IV Status: Completed infusion iw 17:54 Drug: Ketorolac 15 mg Route: IVP; Site: left antecubital; iw 18:10 Follow up: Response: No adverse reaction iw 18:53 Drug: Rocephin (cefTRIAXone) 1 grams Route: IV; Rate: calculated rate; Site: left iw antecubital; 19:00 Follow up: IV Status: Completed infusion iw 19:10 Drug: Ultracet (tramadol-acetaminophen) 1 tabs Route: PO; iw 19:12 Follow up: Response: No adverse reaction iw Disposition Summary: 08/11/21 18:54 Discharge Ordered Location: Home pm1 Problem: new pm1 Symptoms: have improved pm1 Condition: Stable pm1 Diagnosis - UTI/ Urinary tract infection, site not specified pm1 - Other abdominal pain pm1 Followup: pm1 - With: Emergency Department - When: As needed - Reason: Worsening of condition Followup: pm1 - With: Private Physician - When: 2 - 3 days - Reason: Recheck today's complaints, Continuance of care, Re-evaluation by your physician Discharge Instructions: - Discharge Summary Sheet pm1 - Abdominal Pain, Adult pm1 - Urinary Tract Infection, Adult pm1 Forms: - Medication Reconciliation Form pm1 - Thank You Letter pm1 - Antibiotic Education pm1 - Prescription Opioid Use pm1 Prescriptions: - Pyridium 200 mg Oral Tablet - take 1 tablet by ORAL route every 8 hours for 3 days; 9 tablet; Refills: 0, pm1 Product Selection Permitted - Bactrim DS 800-160 mg Oral Tablet - take 1 tablet by ORAL route every 12 hours for 10 days; 20 tablet; Refills: 0, pm1 Product Selection Permitted - Tramadol 50 mg Oral Tablet - take 1 tablet by ORAL route every 8 hours as needed; 12 tablet; Refills: 0, pm1 Product Selection Permitted Addendum: 08/14/2021 22:44 Co-signature as Attending Physician, Arpit Eastman MD I agree with the assessment and r n plan of care. Attestation: The patient's history, exam findings, diagnostics, and a summary of any interventions or procedures was reviewed in detail with Arpit Eastman MD. Signatures: Dispatcher [employer] Vianey Herrera, SENIOR NET ARCHITECT-C SENIOR NET ARCHITECT-Ckb Chey Black RN Arpit Crook MD MD rn Marinas, Patrick, MERLINE QUALITY CONTROL DIRECTOR pm1 Maia Adam RN RN vg1 Corrections: (The following items were deleted from the chart) 08/11 16:14 16:12 Allergies: No Known Allergies; vg1 vg1
[2021-08-11] MEDS ORDERED: CEFTRIAXONE 1000 MG/VIAL ONE (18:57)
[2021-08-11] MEDS ORDERED: NA CHLORIDE 0.9% 50 ML ONE (18:57)
[2021-08-11] MEDS ORDERED: TRAMADOL 37.5mg/APAP 325mg PER TAB ONE (19:05)
[2021-08-11 19:17] VITALS: TEMP 98; O2SAT 100
[2021-08-11 19:18] VITALS: BP 138/64
== END 2021-08-11 19:12 | disposition home or self-care (01) ==
LOC: ER 15:52
DX: N39.0 Urinary tract infection, site not specified (principal); Z88.0 Allergy status to penicillin
CPT/HCPCS: 96361; 87088; 85025; 87086; 80048; 36415; 82565 ×2; 80076; 83690; 74177; 96375; 96374; 99284; Q9967; J7030; 81003; 81015

== ENCOUNTER 2021-08-26 21:18 | Emergency (ER) | payer OTHER ==
--- OUTSIDE RECORDS SUMMARY | 2021-08-26 21:27 | XMS REPORT | Continuity of Care Document ---
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 [code = ZOSTER VACCINE of Me dicine (1 of 2)] Future Scheduled 2021-05-27 Screening for malignant [facility] [employer] Test 10:54:41 neoplasm of breast of Medici ne (procedure) [code = 205072988] Future Scheduled 2021-05-27 FLU VACCINE > 6 MONTHS [employer] Test 10:54:41 [code = FLU VACCINE > 6 of M edicine MONTHS] Future Scheduled 2021-05-27 Screening for malignant [facility] [employer] Test 10:54:41 neoplasm of cervix of Medici ne (procedure) [code = 660076942] Future Scheduled 2021-05-27 TETANUS SHOT (ADULT) [facility] [employer] [facility] 10:54:41 [code = TETANUS SHOT of Medi cine (ADULT)] Future Scheduled 2021-05-16 Screening for malignant [facility] [employer] Test 13:31:36 neoplasm of colon of Medicin e (procedure) [code = 070029078] Future Scheduled 2021-05-16 BMI FOLLOW UP PLAN [employer] Test 13:31:36 [code = BMI FOLLOW UP of Med icine PLAN] Future Scheduled 2021-05-16 Hepatitis C screening [employer] Test 13:31:36 (procedure) [code = of Medic ine 590109308] Future Scheduled 2021-05-16 [facility] 13:31:36 virus screening of Medicine (procedure) [code = 837875143] Future Scheduled 2021-05-16 ZOSTER VACCINE (1 of 2) [facility] [employer] Test 13:31:36 [code = ZOSTER VACCINE of Ny dicine (1 of 2)] Future Scheduled 2021-05-16 Screening for malignant [facility] [employer] Test 13:31:36 neoplasm of breast of Medici ne (procedure) [code = 191356624] Future Scheduled 2021-05-16 FLU VACCINE > 6 MONTHS [employer] Test 13:31:36 [code = FLU VACCINE > 6 of M edicine MONTHS] Future Scheduled 2021-05-16 Screening for malignant [facility] [employer] Test 13:31:36 neoplasm of cervix of Medici ne (procedure) [code = 482605957] Future Scheduled 2021-05-16 TETANUS SHOT (ADULT) [facility] [employer] [facility] 13:31:36 [code = TETANUS SHOT of Medi cine (ADULT)] Future Scheduled 2021-05-16 Screening for malignant [facility] [employer] Test 13:31:36 neoplasm of colon of Medicin e (procedure) [code = 293172187] Future Scheduled 2021-05-16 BMI FOLLOW UP PLAN [employer] Test 13:31:36 [code = BMI FOLLOW UP of Med icine PLAN] Future Scheduled 2021-05-16 Hepatitis C screening [employer] Test 13:31:36 (procedure) [code = of Medic ine 011514322] Future Scheduled 2021-05-16 Human immunodeficiency [employer] Test 13:31:36 virus screening of Medicine (procedure) [code = 043883914] Future Scheduled 2021-05-16 ZOSTER VACCINE (1 of 2) [facility] [employer] Test 13:31:36 [code = ZOSTER VACCINE of Me dicine (1 of 2)] Future Scheduled 2021-05-16 Screening for malignant [facility] Test 13:31:36 neoplasm of breast of Medici ne (procedure) [code = 177365474] Future Scheduled 2021-05-16 FLU VACCINE > 6 MONTHS [employer] Test 13:31:36 [code = FLU VACCINE > 6 of M edicine MONTHS] Future Scheduled 2021-05-16 Screening for malignant [facility] Test 13:31:36 neoplasm of cervix of Medici ne (procedure) [code = 349035547] Future Scheduled 2021-05-16 TETANUS SHOT (ADULT) [facility] [employer] Test 13:31:36 [code = TETANUS SHOT of Medi cine (ADULT)] Future Scheduled 2021-02-07 Screening for malignant [facility] Test 13:04:50 neoplasm of colon of Medicin e (procedure) [code = 382778956] Future Scheduled 2021-02-07 BMI FOLLOW UP PLAN [facility] [employer] Test 13:04:50 [code = BMI FOLLOW UP of Med icine PLAN] Future Scheduled 2021-02-07 Hepatitis C screening [facility] Test 13:04:50 (procedure) [code = of Medic ine 211484399] Future Scheduled 2021-02-07 [facility] virus screening of Medicine (procedure) [code = 954991318] Future Scheduled 2021-02-07 ZOSTER VACCINE (1 of 2) [facility] [employer] Test 13:04:50 [code = ZOSTER VACCINE of Me dicine (1 of 2)] Future Scheduled 2021-02-07 [facility] 13[facility] neoplasm of breast of Medici ne (procedure) [code = 040510482] Future Scheduled 2021-02-07 FLU VACCINE > 6 MONTHS [employer] Test 13:04:50 [code = FLU VACCINE > 6 of M edicine MONTHS] Future Scheduled 2021-02-07 Screening for malignant [facility] Test 13:04:50 neoplasm of cervix of Medici ne (procedure) [code = 701745875] Future Scheduled 2021-02-07 TETANUS SHOT (ADULT) [facility] [employer] Test 13:04:50 [code = TETANUS SHOT of Medi cine (ADULT)] Future Scheduled 2021-02-07 BASIC METABOLIC PANEL Ordered: [employer] Test 11:54:43 [code = 81531-0] 02/07/2021 of Medicine Diagnostic Test 2021-02-06 US RENAL BILATERAL Expected: [facility] Pending 00:00:00 [code = 17146] 02/06/2021 of Medicine (Approximate), Expires: 03/08/2021 Future Scheduled COLON CANCER SCREENING: [facility] Test COLONOSCOPY [code = of Medic ine [...] of Medic ine Future Scheduled CERVICAL CANCER [facility] [employer] Test SCREENING 3 YEAR FOLLOW of M edicine UP [code = CERVICAL CANCER SCREENING 3 YEAR FOLLOW UP] Future Scheduled TETANUS SHOT (ADULT) [employer] [facility] [code = TETANUS SHOT of Medi cine (ADULT)] Future Scheduled COLON CANCER SCREENING: [facility] [employer] Test COLONOSCOPY [code = [...] of Medic ine Future Scheduled CERVICAL CANCER [facility] [employer] Test SCREENING 3 YEAR FOLLOW of M edicine UP [code = CERVICAL CANCER SCREENING 3 YEAR FOLLOW UP] Future Scheduled TETANUS SHOT (ADULT) [employer] [facility] [facility] [code = TETANUS SHOT of Medi cine (ADULT)] Future Scheduled LARYNGOSCOPY, FLEXIBLE Ordered: [employer] Test OR RIGID TELESCOPIC, 01/24/2020 of Medi cine WITH STROBOSCOPY [code = 32523] Future Scheduled COLON CANCER SCREENING: [facility] [employer] Test COLONOSCOPY [code = [...] M edicine MONTHS] Future Scheduled CERVICAL CANCER [facility] [employer] Test SCREENING 3 YEAR FOLLOW of M edicine UP [code = CERVICAL CANCER SCREENING 3 YEAR FOLLOW UP] Future Scheduled TETANUS SHOT (ADULT) [employer] Test [code = TETANUS SHOT of Medi cine (ADULT)] Future Scheduled COLON CANCER SCREENING: [facility] Test COLONOSCOPY [code = of Medic ine [...] M edicine MONTHS] Future Scheduled CERVICAL CANCER [facility] [employer] Test SCREENING 3 YEAR FOLLOW of M edicine UP [code = CERVICAL CANCER SCREENING 3 YEAR FOLLOW UP] Future Scheduled TETANUS SHOT (ADULT) [employer] Test [code = TETANUS SHOT of Medi cine (ADULT)] Future Scheduled SUBLINGUAL Ordered: [facility] Test IMMUNOTHERAPY THERAPY 06/25/2020 of Med icine (SLIT) 16 TO 20 [code = SLIT20] Future Scheduled COLON CANCER SCREENING: [facility] Test COLONOSCOPY [code = of Medic ine [...] Future Scheduled ZOSTER VACCINE (1 of 2) [facility] Test [code = ZOSTER VACCINE of Me dicine (1 of 2)] Future Scheduled MAMMOGRAM ANNUAL [code B [facility] Test = MAMMOGRAM ANNUAL] of Medic ine Future Scheduled [facility]U V[facility]INE > 6 [facility] [code = FLU VACCINE > 6 of M edicine MONTHS] Future Scheduled CERVICAL CANCER [facility] [employer] Test SCREENING 3 YEAR FOLLOW of M edicine UP [code = CERVICAL CANCER SCREENING 3 YEAR FOLLOW UP] Future Scheduled TETANUS SHOT (ADULT) [facility] Test [code = TETANUS SHOT of Medi cine (ADULT)] Encounters Start End Encounter Admission Attending Care Care Encounter Source Date/Time Date/Time Type Type Clinicians Facility Department ID 2021-06-11 Outpatient [facility] Surgery [id number] [facility] 15:11:30 TOMASZ 2021-08-15 2021-08-15 Outpatient [facility] [id number] [facility] 10:42:59 10:42:59 Colleg e of Medicin e 2021-07-16 2021-07-16 Office DYLAN OSEI 1.2.840.114 [id number] [facility] 10:51:39 16:25:13 Visit ANSELMO AMBULATOR 350.1.13.21 College Y 0.2.7.2.686 of [id number] Medi ирина 805 e 2021-07-10 2021-07-10 Office TIFFANI LEWIS 1.2.840.114 [id number] [facility] 11:16:59 13:49:14 Visit AMBULATOR 350.1.13.21 College Y 0.2.7.2.686 of [id number] Medi ирина 305 e 2021-06-03 2021-06-03 Office DYLAN Vlilar 1.2.840.114 [id number] [facility] 10:14:41 11:11:08 Visit Kasey AMBULATOR 350.1.13.21 College Marichuy Y 0.2.7.2.686 of [id number] Medi ирина 800 e 2021-05-27 2021-05-27 Office Tiffani Lewis 1.2.840.114 [id number] [facility] 10:56:01 12:39:50 Visit AMBULATOR 350.1.13.21 College Y 0.2.7.2.686 of [id number] Medi ирина 305 e 2021-05-16 2021-05-16 Office DYLAN Osei 1.2.840.114 [id number] [facility] 10:56:27 12:33:20 Visit Anselmo AMBULATOR 350.1.13.21 College Y 0.2.7.2.686 of [id number] [facility] ирина 805 e 2021-05-07 2021-05-07 [facility] [id number] [facility] 12:44:56 13:01:48 SOLEDAD schilling of Medicin e 2021-02-07 2021-02-07 Outpatient [facility] [id number] [facility] 10:26:05 15:05:23 Colleg e of Medicin e 2021-02-07 2021-02-07 Office DYLAN WOODSON 1.2.840.114 [id number] [facility] 10:27:03 12:13:07 Visit JAN AMBULATOR 350.1.13.21 College Y 0.2.7.2.686 of [id number] [facility] ирина 300 e 2021-01-28 2021-01-28 Outpatient Ally MEYERS [facility] [id number] [employer] 12:30:00 12:30:[address] [facility] 2021-01-07 2021-01-[address] [facility] [id number] [employer] 13:40:00 13:40:00 [facility] 2020-08-20 2020-08-20 Outpatient DYLAN [facility]IS[facility] [id number] [facility] 12:41:10 12:41:22 ANDREEA Colleg e of Medicin e 2020-06-25 2020-06-25 Office DYLAN [place] 1.2.840.114 [id number] 16:00:00 16:30:00 Visit Andreea AMBULATOR 350.1.13.21 Nita Y 0.2.7.2.686 [id number] 800 2020-06-25 2020-06-25 Office DYLAN [place] 1.2.840.114 [id number] [facility] 16:00:00 16:30:00 Visit Andreea AMBULATOR 350.1.13.21 College Nita Y 0.2.7.2.686 of [id number] Medi ирина 800 e 2020-02-07 2020-02-07 Office DYLAN Woodson 1.2.840.114 [id number] 10:24:35 12:31:37 Visit Jan Valentino AMBULATOR 350.1.13.21 Y 0.2.7.2.686 [id number] 300 2020-02-07 2020-02-07 Office DYLAN Woodson 1.2.840.[id number] [place] [address] 10:24:35 12:31:37 Visit Jan Valentino AMBULATOR 350.1.13.21 College Y 0.2.7.2.686 of [id number] Medi ирина 300 e 2020-02-01 2020-02-01 Outpatient [facility] [id number] [address] [place] [address] 00:00:00 00:00:00 2020-01-24 2020-01-24 Office DYLAN Lobo 1.2.840.114 [id number] [facility] 10:42:41 11:57:01 Visit Anselmo AMBULATOR 350.1.13.21 College Y 0.2.7.2.686 of [id number] Medi ирина 800 e 2019-11-18 2019-11-18 Office DYLAN [place] 1.2.840.114 [id number] [facility] 09:16:59 09:46:59 Visit Andreea AMBULATOR 350.1.13.21 College Nita Y 0.2.7.2.686 of [id number] Medi ирина 800 e 2019-11-15 2019-11-15 Office DYLAN Lobo 1.2.840.114 [id number] [facility] 10:44:59 11:43:03 Visit Anselmo AMBULATOR 350.1.13.21 College Y 0.2.7.2.686 of [id number] Medi ирина 800 e Results Test Description Test Time Test Comments Results Result Comments Source POCT URINALYSIS DIPSTICK 2021-02-07 00:00:00 Test Item Value Reference Range Interpretation Comme nts COLOR UA (test code = 5778-6) Yellow YELLOW/STRAW CLARITY UA (test code = 72645-2) Clear CLEAR GLUCOSE UA (test code = 5792-7) Negative NEGATIVE BILIRUBIN UA (test code = 5770-3) Negative NEGATIVE KETONES UA (test code = 60637-2) Negative NEGATIVE SPECIFIC GRAVITY UA (test code [...] NEGATIVE REDUCING SUBSTANCES URINE (test code = 22147-0) [facility],[id number] 00:00:00 Test Item Value Reference Range Interpretation Comments PVR (test code = 6116) cc/ml [id number] 09:46:00Surgical Pathology Report Case: [id number] Authorizing Provider: Tomasz Carlos, Collected: 03/01/2020 12:28 PM OrderingLocation[facility] Received: 03/01/2020 02:54 PM SERVICES Pathologist: Martha Slater MD Specimens: A) - Biopsy, Gastric, random via forcep B) - Polyp, Gastric, via forcep A. STOMACH, RANDOM BIOPSIES: - CHRONIC INACTIVE GASTRITISB. 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 Gastric biopsies have antral and oxyntic mucosa [...] negative controls when available are evaluated.BASIC METABOLIC [id number] 11:07:56 Test Item Value Reference Range Interpretation Comments GLUCOSE (test code = See_Comment [Autom ated message] The 2345-7) system which [employer] nerated this result tra nsmitted reference range [...] [Au tomated message] The 2160-0) system which [employer] nerated this result tra nsmitted reference range : 0.60 - 1.30 MG/DL. The reference range was not u sed to interpret this result as normal/abnormal . EGFR AA (test code = See_Comment [Autom ated message] The 43438-5) system which [employer] nerated this result tra nsmitted reference range : >60 ML/MIN/1.73. Th e reference range was not used to interpr et this result as normal/abnormal . EGFR (test code = See_Comment [Automate d message] The 51258-1) system which [employer] nerated this result tra nsmitted reference range : >60 ML/MIN/1.73. Th e reference range was not used to interpr et this result as normal/abnormal . SODIUM (test code = See_Comment [Automa jerome message] The 295-2) system which ge nerated this result tra nsmitted reference range : 133 - 146 MEQ/L. The reference range was not u sed to interpret this result as normal/abnormal . POTASSIUM (test code = See_Comment [Aut omated message] The 282-3) system which ge nerated this result tra [...] CALCIUM (test code = See_Comment Unless Otherwise 58008-7) Indicated, All Testing Performed At: [facility], [address] [place] [address] Laboratory D irector: Santiago reyes M.D. CLIA Number [id number] [employer] Accreditation N o. [id number] [Auto mated message] The sy stem which generated this result transmitted ref erence range: 8.5 - 10 .5 MG/DL. The reference r michelle was not used to int erpret this result as normal/abnormal . [facility]; [id number] 17:55:00 IMAGES ARE AVAILABLE FOR VIEWING.[facility]
[2021-08-26] MEDS ORDERED: MORPHINE 4 MG/ML SYR IM ONE (21:48)
[2021-08-26] MEDS ORDERED: ONDANSETRON 4 MG (ODT) TAB PO ONE (21:49)
[2021-08-26] MEDS ORDERED: ONDANSETRON 4 MG (ODT) TAB ONE (21:54)
[2021-08-26] MEDS ORDERED: MORPHINE 4 MG/ML SYR ONE (21:54)
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
[2021-08-26 23:51] VITALS: TEMP 98.5; O2SAT 100
[2021-08-26 23:54] VITALS: BP 127/72
--- NOTE | 2021-08-27 15:12 | RAD REPORT ---
EXAM DESCRIPTION: CT - Head Brain Wo Cont - 08/27/2021 6:45 am CLINICAL HISTORY: HEADACHE COMPARISON: None. TECHNIQUE: CT HEAD WITHOUT IV CONTRAST on 08/26/2021 9:52 PM CERTIFIED ART THERAPIST This exam was performed according to our departmental dose-optimization program, which includes autom ated exposure control, adjustment of the mA and/or kV according to patient size and/or use of iterati ve reconstruction technique. FINDINGS: There is no acute hemorrhage, mass effect or midline shift. 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 There is no hydrocephalus. There is no significant volume loss for age. The calvarium is intact. Orbits and globes are unremarkable. The paranasal sinuses are clear. Mastoid air cells are clear. IMPRESSION: No acute intracranial findings. Electronically signed by: Teodoro Pena MD 08/26/2021 11:00 PM CERTIFIED ART THERAPIST Due to temporary technical issues with the PACS/Fluency reporting system, reports are being signed by the in house radiologists without review as a courtesy to insure prompt reporting. The interpreting radiologist is fully responsible for the content of the report.
== END 2021-08-26 23:45 | disposition home or self-care (01) ==
LOC: ER 21:18
DX: R51.9 Headache, unspecified (principal); V49.40XA Driver injured in collision with unspecified motor vehicles in traffic accident, initial encounter; Z88.0 Allergy status to penicillin; Z88.5 Allergy status to narcotic agent
CPT/HCPCS: 70450; 96372; 99284

== ENCOUNTER 2021-09-20 13:44 | Emergency (ER) | payer OTHER ==
--- OUTSIDE RECORDS SUMMARY | 2021-09-20 13:48 | XMS REPORT | Continuity of Care Document ---
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 [employer] Test 11:21:08 [code = TETANUS SHOT of Medi cine (ADULT)] Future Scheduled 2021-06-03 Screening for malignant [facility] [employer] Test 12:27:02 neoplasm of colon of Medicin e (procedure) [code = 458769689] Future Scheduled 2021-06-03 BMI FOLLOW UP PLAN [employer] Test 12:27:02 [code = BMI FOLLOW UP of Med icine PLAN] Future Scheduled 2021-06-03 Hepatitis C screening [facility] Test 12:27:02 (procedure) [code = of Medic ine 357001634] Future Scheduled 2021-06-03 Human immunodeficiency [employer] Test 12:27:02 virus screening of Medicine (procedure) [code = 900865601] Future Scheduled 2021-06-03 ZOSTER VACCINE (1 of 2) [facility] [employer] Test 12:27:02 [code = ZOSTER VACCINE of Tx dicine (1 of 2)] Future Scheduled 2021-06-03 Screening for malignant [facility] [employer] Test 12:27:02 neoplasm of breast of Medici ne (procedure) [code = 655662782] Future Scheduled 2021-06-03 FLU VACCINE > 6 MONTHS [employer] Test 12:27:02 [code = FLU VACCINE > 6 of M edicine MONTHS] Future Scheduled 2021-06-03 Screening for malignant [employer] Test 12:27:02 neoplasm of cervix of Medici ne (procedure) [code = 729701605] Future Scheduled 2021-06-03 TETANUS SHOT (ADULT) [employer] Test 12:27:02 [code = TETANUS SHOT of Medi cine (ADULT)] Future Scheduled 2021-06-03 Screening for malignant [employer] Test 12:27:02 neoplasm of colon of Medicin e (procedure) [code = 875146798] Future Scheduled 2021-06-03 BMI FOLLOW UP PLAN [employer] Test 12:27:02 [code = BMI FOLLOW UP of Med icine PLAN] Future Scheduled 2021-06-03 Hepatitis C screening [facility] Test 12:27:02 (procedure) [code = of Medic ine 795990172] Future Scheduled 2021-06-03 Human immunodeficiency [facility] [employer] Test 12:27:02 virus screening of Medicine (procedure) [code = 486627624] Future Scheduled 2021-06-03 ZOSTER VACCINE (1 of 2) [employer] Test 12:27:02 [code = ZOSTER VACCINE of Me dicine (1 of 2)] Future Scheduled 2021-06-03 Screening for malignant [facility] [employer] Test 12:27:02 neoplasm of breast of Medici ne (procedure) [code = 976365749] Future Scheduled 2021-06-03 FLU VACCINE > 6 MONTHS [facility] [employer] Test 12:27:02 [code = FLU VACCINE > 6 of M edicine MONTHS] Future Scheduled 2021-06-03 Screening for malignant [facility] [employer] Test 12:27:02 neoplasm of cervix of Medici ne (procedure) [code = 885495954] Future Scheduled 2021-06-03 TETANUS SHOT (ADULT) [facility] [facility] [employer] Test 12:27:02 [code = TETANUS SHOT of Medi cine (ADULT)] Future Scheduled 2021-05-27 [facility] IGE [code = Ordered: [facility] [employer] Test 12:27:33 NOCPT] 05/27/2021 of Medicine Future Scheduled 2021-05-27 IGE [code = 18037-4] Ordered: [employer] Test 12:27:33 05/27/2021 of Medicine Future Scheduled 2021-05-27 [facility] IGE [code = Ordered: [facility] [employer] Test 12:27:33 NOCPT] 05/27/2021 of Medicine Future Scheduled 2021-05-27 IGE [code = 81130-2] Ordered: [employer] [employer] Test 12:27:33 05/27/2021 of Medicine Future Scheduled 2021-05-27 MS PERCUTANEOUS TESTS Ordered: [employer] Test 12:01:12 W/ALLERGENIC EXTRACTS 05/27/2021 of Med icine [code = 12741] Future Scheduled 2021-05-27 MS PERCUTANEOUS TESTS Ordered: [employer] Test 12:01:12 W/ALLERGENIC EXTRACTS 05/27/2021 of Med icine [code = 97390] Future Scheduled 2021-05-27 Screening for malignant [facility] [employer] Test 10:54:41 neoplasm of colon of Medicin e (procedure) [code = 805192633] Future Scheduled 2021-05-27 BMI FOLLOW UP PLAN [employer] Test 10:54:41 [code = BMI FOLLOW UP of Med icine PLAN] Future Scheduled 2021-05-27 Hepatitis C screening [employer] Test 10:54:41 (procedure) [code = of Medic ine 962309762] Future Scheduled 2021-05-27 Human immunodeficiency [employer] Test 10:54:41 virus screening of Medicine (procedure) [code = 354241664] Future Scheduled 2021-05-27 ZOSTER VACCINE (1 of 2) [facility] [employer] Test 10:54:41 [code = ZOSTER VACCINE of Me dicine (1 of 2)] Future Scheduled 2021-05-27 Screening for malignant [employer] Test 10:54:41 neoplasm of breast of Medici ne (procedure) [code = 233093018] Future Scheduled 2021-05-27 FLU VACCINE > 6 MONTHS [employer] Test 10:54:41 [code = FLU VACCINE > 6 of M edicine MONTHS] Future Scheduled 2021-05-27 Screening for malignant [employer] Test 10:54:41 neoplasm of cervix of Medici ne (procedure) [code = 992712667] Future Scheduled 2021-05-27 TETANUS SHOT (ADULT) [employer] [employer] Test 10:54:41 [code = TETANUS SHOT of Medi cine (ADULT)] Future Scheduled 2021-05-27 Screening for malignant [facility] [employer] Test 10:54:41 neoplasm of colon of Medicin e (procedure) [code = 898433233] Future Scheduled 2021-05-27 BMI FOLLOW UP PLAN [employer] Test 10:54:41 [code = BMI FOLLOW UP of Med icine PLAN] Future Scheduled 2021-05-27 Hepatitis C screening [employer] Test 10:54:41 (procedure) [code = of Medic ine 444378351] Future Scheduled 2021-05-27 Human immunodeficiency [employer] Test 10:54:41 virus screening of Medicine (procedure) [code = 061502013] Future Scheduled 2021-05-27 ZOSTER VACCINE (1 of 2) [employer] Test 10:54:41 [code = ZOSTER VACCINE of Me dicine (1 of 2)] Future Scheduled 2021-05-27 Screening for malignant [employer] Test 10:54:41 neoplasm of breast of Medici ne (procedure) [code = 429436050] Future Scheduled 2021-05-27 FLU VACCINE > 6 MONTHS [employer] Test 10:54:41 [code = FLU VACCINE > 6 of M edicine MONTHS] Future Scheduled 2021-05-27 Screening for malignant [facility] [employer] Test 10:54:41 neoplasm of cervix of Medici ne (procedure) [code = 612117701] Future Scheduled 2021-05-27 TETANUS SHOT (ADULT) [employer] Test 10:54:41 [code = TETANUS SHOT of Medi cine (ADULT)] Future Scheduled 2021-05-16 Screening for malignant [facility] [employer] Test 13:31:36 neoplasm of colon of Medicin e (procedure) [code = 956937159] Future Scheduled 2021-05-16 BMI FOLLOW UP PLAN [employer] Test 13:31:36 [code = BMI FOLLOW UP of Med icine PLAN] Future Scheduled 2021-05-16 Hepatitis C screening [facility] Test 13:31:36 (procedure) [code = of Medic ine 473190272] Future Scheduled 2021-05-16 Human immunodeficiency [facility] [employer] Test 13:31:36 virus screening of Medicine (procedure) [code = 989740886] Future Scheduled 2021-05-16 ZOSTER VACCINE (1 of 2) [facility] [employer] Test 13:31:36 [code = ZOSTER VACCINE of Me dicine (1 of 2)] Future Scheduled 2021-05-16 Screening for malignant [facility] [employer] Test 13:31:36 neoplasm of breast of Medici ne (procedure) [code = 495625189] Future Scheduled 2021-05-16 FLU VACCINE > 6 MONTHS [employer] Test 13:31:36 [code = FLU VACCINE > 6 of M edicine MONTHS] Future Scheduled 2021-05-16 Screening for malignant [employer] Test 13:31:36 neoplasm of cervix of Medici ne (procedure) [code = 175631919] Future Scheduled 2021-05-16 TETANUS SHOT (ADULT) [employer] Test 13:31:36 [code = TETANUS SHOT of Medi cine (ADULT)] Future Scheduled 2021-05-16 Screening for malignant [facility] [employer] Test 13:31:36 neoplasm of colon of Medicin e (procedure) [code = 115309639] Future Scheduled 2021-05-16 BMI FOLLOW UP PLAN [employer] Test 13:31:36 [code = BMI FOLLOW UP of Med icine PLAN] Future Scheduled 2021-05-16 Hepatitis C screening [employer] Test 13:31:36 (procedure) [code = of Medic ine 041077801] Future Scheduled 2021-05-16 Human immunodeficiency [employer] Test 13:31:36 virus screening of Medicine (procedure) [code = 409590578] Future Scheduled 2021-05-16 ZOSTER VACCINE (1 of 2) [facility] [employer] Test 13:31:36 [code = ZOSTER VACCINE of Me dicine (1 of 2)] Future Scheduled 2021-05-16 Screening for malignant [facility] [employer] Test 13:31:36 neoplasm of breast of Medici ne (procedure) [code = 981041992] Future Scheduled 2021-05-16 FLU VACCINE > 6 MONTHS [employer] Test 13:31:36 [code = FLU VACCINE > 6 of M edicine MONTHS] Future Scheduled 2021-05-16 Screening for malignant [facility] [employer] Test 13:31:36 neoplasm of cervix of Medici ne (procedure) [code = 918233081] Future Scheduled 2021-05-16 TETANUS SHOT (ADULT) [facility] [facility] [employer] Test 13:31:36 [code = TETANUS SHOT of Medi cine (ADULT)] Future Scheduled 2021-02-07 Screening for malignant [employer] Test 13:04:50 neoplasm of colon of Medicin e (procedure) [code = 781933505] Future Scheduled 2021-02-07 BMI FOLLOW UP PLAN [employer] Test 13:04:50 [code = BMI FOLLOW UP of Med icine PLAN] Future Scheduled 2021-02-07 Hepatitis C screening [employer] Test 13:04:50 (procedure) [code = of Medic ine 407759638] Future Scheduled 2021-02-07 Human immunodeficiency [employer] Test 13:04:50 virus screening of Medicine (procedure) [code = 896718963] Future Scheduled 2021-02-07 ZOSTER VACCINE (1 of 2) [employer] Test 13:04:50 [code = ZOSTER VACCINE of Me dicine (1 of 2)] Future Scheduled 2021-02-07 Screening for malignant [employer] Test 13:04:50 neoplasm of breast of Medici ne (procedure) [code = 586163268] Future Scheduled 2021-02-07 FLU VACCINE > 6 MONTHS [employer] Test 13:04:50 [code = FLU VACCINE > 6 of M edicine MONTHS] Future Scheduled 2021-02-07 Screening for malignant [employer] Test 13:04:50 neoplasm of cervix of Medici ne (procedure) [code = 652358038] Future Scheduled 2021-02-07 TETANUS SHOT (ADULT) [employer] Test 13:04:50 [code = TETANUS SHOT of Medi cine (ADULT)] Future Scheduled 2021-02-07 BASIC METABOLIC PANEL Ordered: [employer] Test 11:54:43 [code = 47425-5] 02/07/2021 of Medicine Diagnostic Test 2021-02-06 US RENAL BILATERAL Expected: [facility] [employer] Pending 00:00:00 [code = 25784] 02/06/2021 of Medicine (Approximate), Expires: 03/08/2021 Future Scheduled COLON CANCER SCREENING: [facility] [employer] Test COLONOSCOPY [code = of Medic [...] of Medic ine Future Scheduled CERVICAL CANCER [employer] Test SCREENING 3 YEAR FOLLOW of M edicine UP [code = CERVICAL CANCER SCREENING 3 YEAR FOLLOW UP] Future Scheduled TETANUS SHOT (ADULT) [employer] Test [code = TETANUS SHOT of Medi cine (ADULT)] Future Scheduled COLON CANCER SCREENING: [facility] [employer] Test COLONOSCOPY [code = of Medic [...] of Medic ine Future Scheduled CERVICAL CANCER [facility] C ollege Test SCREENING 3 YEAR FOLLOW of M edicine UP [code = CERVICAL CANCER SCREENING 3 YEAR FOLLOW UP] Future Scheduled TETANUS SHOT (ADULT) [employer] Test [code = TETANUS SHOT of Medi cine (ADULT)] Future Scheduled LARYNGOSCOPY, FLEXIBLE Ordered: [employer] Test OR RIGID TELESCOPIC, 01/24/2020 of Medi cine WITH STROBOSCOPY [code = 12016] Future Scheduled COLON CANCER SCREENING: [facility] [employer] Test COLONOSCOPY [code = of Medic [...] M edicine MONTHS] Future Scheduled CERVICAL CANCER [facility] C ollege Test SCREENING 3 YEAR FOLLOW of M edicine UP [code = CERVICAL CANCER SCREENING 3 YEAR FOLLOW UP] Future Scheduled TETANUS SHOT (ADULT) [employer] Test [code = TETANUS SHOT of Medi cine (ADULT)] Future Scheduled COLON CANCER SCREENING: [facility] [employer] Test COLONOSCOPY [code = of Medic [...] M edicine MONTHS] Future Scheduled CERVICAL CANCER [facility] C ollege Test SCREENING 3 YEAR FOLLOW of M edicine UP [code = CERVICAL CANCER SCREENING 3 YEAR FOLLOW UP] Future Scheduled TETANUS SHOT (ADULT) [employer] Test [code = TETANUS SHOT of Medi cine (ADULT)] Future Scheduled SUBLINGUAL Ordered: [facility] ege Test IMMUNOTHERAPY THERAPY 06/25/2020 of Med icine (SLIT) 16 TO 20 [code = SLIT20] Future Scheduled COLON CANCER SCREENING: [facility] [employer] Test COLONOSCOPY [code = of Medic [...] Future Scheduled ZOSTER VACCINE (1 of 2) [facility] [employer] Test [code = ZOSTER VACCINE of Me dicine (1 of 2)] Future Scheduled MAMMOGRAM ANNUAL [code [facility] [employer] Test = MAMMOGRAM ANNUAL] of Medic ine Future Scheduled FLU VACCINE > 6 MONTHS [employer] Test [code = FLU VACCINE > 6 of M edicine MONTHS] Future Scheduled CERVICAL CANCER [facility] C ollege Test SCREENING 3 YEAR FOLLOW of M edicine UP [code = CERVICAL CANCER SCREENING 3 YEAR FOLLOW UP] Future Scheduled TETANUS SHOT (ADULT) [employer] Test [code = TETANUS SHOT of Medi cine (ADULT)] Encounters Start End Encounter Admission Attending Care Care Encounter Source Date/Time Date/Time Type Type Clinicians Facility Department ID 2021-06-11 Outpatient [facility] Surgery [id number] [facility] 15:11:30 TOMASZ 2021-09-17 2021-09-17 Office DYLAN Cook [id number] [facility] 11:00:00 13:33:01 Visit Talib Corrales AMBULATOR 350.1.13.21 College Y 0.2.7.2.686 of [id number] Medi ирина 805 e 2021-09-03 2021-09-03 Outpatient [facility] [id number] [facility] 10:46:45 10:46:45 Colleg e of Medicin e 2021-08-15 2021-08-15 Outpatient [facility] [id number] [facility] 10:42:59 10:42:59 Colleg e of Medicin e 2021-07-16 2021-07-16 Office DYLAN OSEI [id number] [facility] 10:51:39 16:25:13 Visit ANSELMO AMBULATOR 350.1.13.21 College Y 0.2.7.2.686 of [id number] Medi ирина 805 e 2021-07-10 2021-07-10 Office DEBBIETIFFANI [facility] [id number] [facility] 11:16:59 13:49:14 Visit AMBULATOR 350.1.13.21 College Y 0.2.7.2.686 of [id number] Medi ирина 305 e 2021-06-03 2021-06-03 Office JULIAN Villar 1.2.840.114 [id number] [facility] 10:14:41 11:11:08 Visit Kasey AMBULATOR 350.1.13.21 College [place] Y 0.2.7.2.686 of [id number] Medi ирина 800 e 2021-05-27 2021-05-27 Office DebbieTiffani [facility] 1.2.840.114 [id number] [facility] 10:56:01 12:39:50 Visit AMBULATOR 350.1.13.21 College Y 0.2.7.2.686 of [id number] [facility] ирина 305 e 2021-05-16 2021-05-16 Office JULIAN Osei 1.2.840.114 [id number] [facility] 10:56:27 12:33:20 Visit Anselmo AMBULATOR 350.1.13.21 College Y 0.2.7.2.686 of [id number] Medi ирина 805 e 2021-05-07 2021-05-07 Outpatient DYLAN UMAÑA [facility] [id number] [facility] 12:44:56 13:01:48 SOLEDAD schilling of Medicin e 2021-02-07 2021-02-07 Outpatient [facility] [id number] [facility] 10:26:05 15:05:23 Ghassan ramirez of Medicin e 2021-02-07 2021-02-07 Office DYLAN WOODSON 1.2.840.114 [id number] [facility] 10:27:03 12:13:07 Visit JAN AMBULATOR 350.1.13.21 College Y 0.2.7.2.686 of [id number] Medi ирина 300 e 2021-01-28 2021-01-28 Outpatient Ally MEYERS [facility] [id number] [employer] 12:30:00 12:30:[address] [facility] 2021-01-07 2021-01-07 Outpatient [facility] [id number] [employer] 13:40:00 13:40:00 itollie [facility] 2020-08-20 2020-08-20 Outpatient DYLAN CARLISLE [id number] [address] [place] [address] 12:41:10 12:41:22 ANDREEA Colleg e of Medicin e 2020-06-25 2020-06-25 Office DYLAN [place] 1.2.840.114 [id number] 16:00:00 16:30:00 Visit Andreea AMBULATOR 350.1.13.21 Nita Y 0.2.7.2.686 [id number] 2020-06-25 2020-06-25 Office DYLAN [place]isle 1.2.840.[id number] [place] [address] 16:00:00 16:30:00 Visit Andreea AMBULATOR 350.1.13.21 College Nita Y 0.2.7.2.686 of [id number] Medi ирина 800 e 2020-02-07 2020-02-07 Office DYLAN Woodson 1.2.840.114 [id number] 10:24:35 12:31:37 Visit Jan Valentino AMBULATOR 350.1.13.21 Y 0.2.7.2.686 [id number] 2020-02-07 2020-02-07 Office DYLAN Woodson 1.2.840.114 [id number] [facility] 10:24:35 12:31:37 Visit Jan Chicho AMBULATOR 350.1.13.21 College Y 0.2.7.2.686 of [id number] Medi ирина 300 e 2020-02-01 2020-02-01 Outpatient [facility] [id number] [facility] 00:00:00 00:00:00 2020-01-24 2020-01-24 Office DYLAN Lobo 1.2.840.114 [id number] [facility] 10:42:41 11:57:01 Visit Anselmo AMBULATOR [id number] College Y [id number] of [phone] [employer] ирина 800 e 2019-11-18 2019-11-18 Office DYLAN [place] [id number] [facility] 09:16:59 09:46:59 Visit Andreea AMBULATOR [id number] College Nita Y [id number] of [id number] [facility] ирина 800 e 2019-11-15 2019-11-15 Office DYLAN Lobo [id number] [facility] 10:44:59 11:43:03 Visit Anselmo AMBULATOR [id number] College Y [id number] of [phone] [facility] ирина 800 e Results Test Description Test Time Test Comments Results Result Comments Source POCT URINALYSIS DIPSTICK 2021-02-07 00:00:00 Test Item Value Reference Range Interpretation Comme nts COLOR UA (test code = 5778-6) Yellow YELLOW/STRAW CLARITY UA (test code = 41878-7) Clear CLEAR GLUCOSE UA (test code = 5792-7) Negative NEGATIVE BILIRUBIN UA (test code = 5770-3) Negative NEGATIVE KETONES UA (test code = 54910-6) Negative NEGATIVE SPECIFIC GRAVITY UA (test code [...] NEGATIVE REDUCING SUBSTANCES URINE (test code = 59918-8) [facility],[id number] 00:00:00 Test Item Value Reference Range Interpretation Comments PVR (test code = 6116) cc/ml [facility] [id number] 09:46:00Surgical Pathology Report Case: [id number] Authorizing Provider: Tomasz Carlos, Collected: 03/01/2020 12:28 PM OrderingLocation: [facility] Received: 03/01/2020 02:54 PM SERVICES Pathologist: Martha Slater MD Specimens: A) - Biopsy, Gastric, random via forcep B) - Polyp, Gastric, via forcep A. STOMACH, RANDOM BIOPSIES: - CHRONIC INACTIVE GASTRITISB. 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 Gastric biopsies have antral and oxyntic mucosa [...] negative controls when available are evaluated.BASIC METABOLIC [id number] 11:07:56 Test Item Value Reference Range Interpretation [...] code = See_Comment [Au tomated message] The 0) system which ge nerated this result tra nsmitted reference range : 0.60 - 1.30 MG/DL. The reference range was not u sed to interpret this result as normal/abnormal . EGFR AA (test code = See_Comment [Autom ated message] The 46419-8) system which ge nerated this result tra nsmitted reference range : >60 ML/MIN/1.73. Th e reference range was not used to interpr et this result as normal/abnormal . EGFR (test code = See_Comment [Automate d message] The 18405-3) system which ge nerated this result tra nsmitted reference range : >60 ML/MIN/1.73. Th e reference range was not used to interpr et this result as normal/abnormal . SODIUM (test code = See_Comment [Automa jerome message] The 2952) system which ge nerated this result tra nsmitted reference range : 133 - 146 MEQ/L. The reference range was not u sed to interpret this result as normal/abnormal . POTASSIUM (test code = See_Comment [Aut omated message] The 2823) system which ge nerated this result tra [...] CALCIUM (test code = See_Comment Unless Otherwise 80272-9) Indicated, All Testing Performed At: [facility], [address] [place] [address] Laboratory D irector: John VerdugoIA Number [id number] Cap Accreditation N o. [id number] [Auto mated message] The sy stem which generated this result transmitted ref erence range: 8.5 - 10 .5 MG/DL. The reference r michelle was not used to int erpret this result as normal/abnormal . [facility] CenterLARYNGOS[facility], FLEXIBLE; [id number] 17:55:00 IMAGES ARE AVAILABLE FOR VIEWING.[facility]
--- NOTE | 2021-09-20 15:23 | EDPHYS ---
Physician Documentation [facility] Name: Andree Rene Age: 61 yrs Sex: Female : 1960 Arrival Date: 09/20/2021 Time: 13:46 Bed 11 Private MD: ED Physician Dex Newsome HPI: 09/20 14:32 This 61 yrs old Female presents to ER via Ambulatory with complaints of Ear jmm Pain - W/ Bleeding. 14:32 The patient presents with drainage, pain. The complaints affect the right ear. Onset: jmm The symptoms/episode began/occurred last night. Modifying factors: The symptoms are alleviated by nothing, the symptoms are aggravated by nothing. Associated signs and symptoms: Pertinent negatives: fever, sore throat, vomiting. The patient has not experienced similar symptoms in the past. This is a 61-year-old female with history of anxiety, chronic back pain, GERD that presents emerged department with complaints of bleeding from her right ear. Patient states that her ear was itching yesterday. States she awoke to blood on her pillow and has had some right temporal pain and right ear pain since. Denies fever, cough, congestion. Denies vomiting, seizure-like activity, behavior change. Historical: - Allergies: 13:56 Codeine; vg1 13:56 PENICILLINS; vg1 - Home Meds: 13:56 cetirizine oral [Active]; Omeprazole Oral [Active]; duloxetine oral [Active]; potassium vg1 citrate oral [Active]; montelukast oral [Active]; Trazodone Oral [Active]; Flonase Nasal [Active]; alendronate oral [Active]; - PMHx: 13:56 Anxiety; chronic back pain; GERD; vg1 - Immunization history:: Client reports receiving the 2nd dose of the Covid vaccine. - Social history:: Smoking status: Patient denies any tobacco usage or history of. ROS: 14:32 Constitutional: Negative for fever, chills, and weight loss, Cardiovascular: Negative jmm for chest pain, palpitations, and edema, Respiratory: Negative for shortness of breath, cough, wheezing, and pleuritic chest pain. 14:32 ENT: Positive for drainage from ear(s), ear pain. 14:32 Neuro: Positive for headache, Negative for gait disturbance, seizure activity, speech changes, syncope, visual changes, weakness. 14:32 All other systems are negative. Exam: 14:32 Constitutional: This is a well developed, well nourished patient who is awake, alert, jmm and in no acute distress. Head/Face: atraumatic. Eyes: EOMI, no conjunctival erythema appreciated 14:32 Chest/axilla: Normal chest wall appearance and motion. Cardiovascular: Regular rate and rhythm. No edema appreciated Respiratory: Normal respirations, no respiratory distress appreciated Abdomen/GI: Non distended, soft Back: Normal ROM 14:32 ENT: Ear canal(s): are normal, TM's: erythema, that is mild, on the right, Posterior pharynx: is normal. 14:32 Neck: ROM/movement: is normal. 14:32 Skin: Abrasion noted to the right ear canal. Vital Signs: 13:55 BP 135 / 70; Pulse 74; Resp 16; Temp 98.3; Pulse Ox 99% ; Weight 72.57 kg; Height 5 ft. vg1 3 in. (160.02 cm); Pain 5/10; 15:44 BP 141 / 79; Pulse 87; Resp 16; Pulse Ox 100% on R/A; Pain 0/10; ab2 13:55 Body Mass Index 28.34 (72.57 kg, 160.02 cm) vg1 MDM: 14:32 Patient medically screened. [facility] 15:20 Data reviewed: vital signs, nurses notes. Counseling: I had a detailed discussion with louie the patient and/or guardian regarding: the historical points, exam findings, and any diagnostic results supporting the discharge/admit diagnosis, the need for outpatient follow up, to return to the emergency department if symptoms worsen or persist or if there are any questions or concerns that arise at home. ED course: Patient is alert and non toxic in appearance in the ED. Patient advised to follow up with ENT for reevaluation. Patient is otherwise given strict return precautions. Patient understood and agrees with the plan of care. . Administered Medications: No medications were administered Disposition: 18:01 Co-signature as Attending Physician, Dex Newsome MD I agree with the assessment and kdr plan of care. Disposition Summary: 09/20/21 15:22 Discharge Ordered Location: Home [facility] Condition: Stable [facility] Diagnosis - Right Otalgia - Bleeding [facility] Followup: [facility] - With: Anya Morgan MD - When: 2 - 3 days - Reason: Recheck today's complaints, Continuance of care, Re-evaluation by your physician Discharge Instructions: - Discharge Summary Sheet jm - Earache, Adult [facility] Forms: - Medication Reconciliation Form [facility] - Thank You Letter louie - Antibiotic Education bryan - Prescription Opioid Use [facility] Prescriptions: - Ciprodex 0.3-0.1 % Otic Drops, Suspension - instill 4 drops by OTIC route every 12 hours for 7 days , for ears ONLY; 1 jm Container; Refills: 0, Product Selection Permitted Signatures: Dex Newsome MD MD kdr Mickail, Joel, PA PA jmm Garcia, Victoria, RN RN vg1
--- NOTE | 2021-09-20 15:23 | ER ---
Nurse's Notes [facility] Name: Andree Rene Age: 61 yrs Sex: Female : 1960 Arrival Date: 09/20/2021 Time: 13:46 Bed 11 Private MD: Diagnosis: Right Otalgia - Bleeding Presentation: 09/20 13:55 Chief complaint: Patient states: Right ear pain began yesterday; states woke up this vg1 morning and noticed blood on pillow, also states ear 'feels itchy'. Coronavirus screen: Vaccine status: Patient reports receiving the 2nd dose of the covid vaccine. Client denies travel out of the [place] in the last 14 days. Ebola Screen: Patient negative for fever greater than or equal to 101.5 degrees Fahrenheit, and additional compatible Ebola Virus Disease symptoms. Initial Sepsis Screen: Does the patient meet any 2 criteria? No. Patient's initial sepsis screen is negative. Does the patient have a suspected source of infection? No. Patient's initial sepsis screen is negative. Risk Assessment: Do you want to hurt yourself or someone else? Patient reports no desire to harm self or others. Onset of symptoms was September 20, 2021. 13:55 Method Of Arrival: Ambulatory vg1 13:55 Acuity: LACIE 4 vg1 Triage Assessment: 13:56 General: Appears in no apparent distress. comfortable, Behavior is calm, cooperative. vg1 Pain: Complains of pain in right ear. EENT:. Historical: - Allergies: 13:56 Codeine; vg1 13:56 PENICILLINS; vg1 - Home Meds: 13:56 cetirizine oral [Active]; Omeprazole Oral [Active]; duloxetine oral [Active]; potassium vg1 citrate oral [Active]; montelukast oral [Active]; Trazodone Oral [Active]; Flonase Nasal [Active]; alendronate oral [Active]; - PMHx: 13:56 Anxiety; chronic back pain; GERD; vg1 - Immunization history:: Client reports receiving the 2nd dose of the Covid vaccine. - Social history:: Smoking status: Patient denies any tobacco usage or history of. Screenin:10 Abuse screen: Denies threats or abuse. Denies injuries from another. Nutritional ab2 screening: No deficits noted. Tuberculosis screening: No symptoms or risk factors identified. Fall Risk None identified. Assessment: 14:07 General: Appears in no apparent distress. comfortable, Behavior is calm, cooperative, ab2 appropriate for age. Pain: Complains of pain in right ear Pain currently is 6 out of 10 on a pain scale. Quality of pain is described as aching. Neuro: No deficits noted. 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 Gait is steady, Speech is normal, Facial symmetry appears normal. Cardiovascular: No deficits noted. Denies chest pain, shortness of breath, Heart tones S1 S2 present Patient's skin is warm and dry. Respiratory: No deficits noted. Airway is patent Breath sounds are clear bilaterally. GI: No deficits noted. No signs and/or symptoms were reported involving the gastrointestinal system. Abdomen is flat, Bowel sounds present X 4 quads. : No deficits noted. No signs and/or symptoms were reported regarding the genitourinary system. EENT: No deficits noted. No signs and/or symptoms were reported regarding the EENT system. EENT: Reports bloody drainage from right ear. Derm: No deficits noted. No signs and/or symptoms reported regarding the dermatologic system. Musculoskeletal: No deficits noted. No signs and/or symptoms reported regarding the musculoskeletal system. Vital Signs: 13:55 BP 135 / 70; Pulse 74; Resp 16; Temp 98.3; Pulse Ox 99% ; Weight 72.57 kg; Height 5 ft. vg1 3 in. (160.02 cm); Pain 5/10; 15:44 BP 141 / 79; Pulse 87; Resp 16; Pulse Ox 100% on R/A; Pain 0/10; ab2 13:55 Body Mass Index 28.34 (72.57 kg, 160.02 cm) vg1 ED Course: 13:46 Patient arrived in ED. ds1 13:56 Triage completed. vg1 13:56 Arm band placed on. vg1 14:01 Romero Chavez is Primary Nurse. ab2 14:07 Jaydon Hussein PA is PHCP. jmm 14:07 Dex Newsome MD is Attending Physician. [facility] 14:10 Patient has correct armband on for positive identification. Bed in low position. Call ab2 light in reach. 14:10 No provider procedures requiring assistance completed. ab2 15:22 Anya Morgan MD is Referral Physician. [facility] 15:45 Patient did not have IV access during this emergency room visit. ab2 Administered Medications: No medications were administered Outcome: 15: Discharge ordered by . [facility] 15:44 Discharged to home ambulatory. ab2 15:44 Condition: good 15:44 Discharge instructions given to patient, Instructed on discharge instructions, Demonstrated understanding of instructions, follow-up care, medications, Prescriptions given X 1. 15:45 Patient left the ED. ab2 Signatures: Jaydon Hussein PA PA jmm Sanford, Demi ds1 Maia Adam, RN RN vg1 Romero Chavez ab2
[2021-09-20 15:58] VITALS: TEMP 98.3
[2021-09-20 16:00] VITALS: BP 141/79; O2SAT 100
== END 2021-09-20 15:45 | disposition home or self-care (01) ==
LOC: ER 13:44
DX: H92.21 Otorrhagia, right ear (principal); F41.9 Anxiety disorder, unspecified; K21.9 Gastro-esophageal reflux disease without esophagitis; Z88.0 Allergy status to penicillin; Z88.5 Allergy status to narcotic agent
CPT/HCPCS: 99282

== ENCOUNTER 2021-11-11 12:42 | Emergency (ER) | payer OTHER ==
--- OUTSIDE RECORDS SUMMARY | 2021-11-11 12:46 | XMS REPORT | Continuity of Care Document ---
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 Hepatitis C screening [facility] Test 12:27:02 (procedure) [code = of Medic ine 403331495] Future Scheduled 2021-06-03 Human immunodeficiency [facility] Test 12:27:02 virus screening of Medicine (procedure) [code = 837509762] Future Scheduled 2021-06-03 ZOSTER VACCINE (1 of 2) [facility] Test 12:27:02 [code = ZOSTER VACCINE of Me dicine (1 of 2)] Future Scheduled 2021-06-03 Screening for malignant [facility] Test 12:27:02 neoplasm of breast of Medici ne (procedure) [code = 265326606] Future Scheduled 2021-06-03 FLU VACCINE > 6 MONTHS [facility] Test 12:27:02 [code = FLU VACCINE > 6 of M edicine MONTHS] Future Scheduled 2021-06-03 Screening for malignant [facility] Test 12:27:02 neoplasm of cervix of Medici ne (procedure) [code = 262501116] Future Scheduled 2021-06-03 TETANUS SHOT (ADULT) [facility] Test 12:27:02 [code = TETANUS SHOT of Medi cine (ADULT)] Future Scheduled 2021-05-27 [facility] IGE [code = Ordered: [facility] Test 12:27:33 NOCPT] 05/27/2021 of Medicine Future Scheduled 2021-05-27 IGE [code = 29547-6] Ordered: [facility] Test 12:27:33 05/27/2021 of Medicine Future Scheduled 2021-05-27 [facility]GE [code = Ordered: [facility] Test 12:27:33 NOCPT] 05/27/2021 of Medicine Future Scheduled 2021-05-27 IGE [code = 66012-9] Ordered: [place] [employer] [facility] 12:27:33 05/27/2021 of Medicine Future Scheduled 2021-05-27 [place] PERC[place] Ordered: [facility] Test 12:01:12 W/ALLERGENIC EXTRACTS 05/27/2021 of Med icine [code = 73858] Future Scheduled 2021-05-27 [place] PERCUT[place]OUS TEST[place] Ordered: [facility] Test 12:01:12 W/ALLERGENIC EXTRACTS 05/27/2021 of Med icine [code = 35941] Future Scheduled 2021-05-27 Screening for malignant [facility] [employer] Test 10:54:41 neoplasm of colon of Medicin e (procedure) [code = 058848776] Future Scheduled 2021-05-27 BMI FOLLOW UP PLAN [employer] Test 10:54:41 [code = BMI FOLLOW UP of Med icine PLAN] Future Scheduled 2021-05-27 Hepatitis C screening [employer] [facility] 10:54:41 (procedure) [code = of Medic ine 642709747] Future Scheduled 2021-05-27 Human immunodeficiency [employer] Test 10:54:41 virus screening of Medicine (procedure) [code = 587932514] Future Scheduled 2021-05-27 ZOSTER VACCINE (1 of 2) [facility] [employer] Test 10:54:41 [code = ZOSTER VACCINE of Me dicine (1 of 2)] Future Scheduled 2021-05-27 Screening for malignant [employer] Test 10:54:41 neoplasm of breast of Medici ne (procedure) [code = 221558395] Future Scheduled 2021-05-27 FLU VACCINE > 6 MONTHS [employer] [facility] 10:54:41 [code = FLU VACCINE > 6 of M edicine MONTHS] Future Scheduled 2021-05-27 Screening for malignant [facility] [employer] Test 10:54:41 neoplasm of cervix of Medici ne (procedure) [code = 513601718] Future Scheduled 2021-05-27 TETANUS SHOT (ADULT) [place] [employer] 10:54:41 [code = TETANUS SHOT of Medi cine (ADULT)] Future Scheduled 2021-05-27 Screening for malignant [facility] [employer] Test 10:54:41 neoplasm of colon of Medicin e (procedure) [code = 961130042] Future Scheduled 2021-05-27 BMI FOLLOW UP PLAN [employer] [facility] 10:54:41 [code = BMI FOLLOW UP of Med icine PLAN] Future Scheduled 2021-05-27 Hepatitis C screening [employer] [facility] 10:54:41 (procedure) [code = of Medic ine 606377349] Future Scheduled 2021-05-27 Human immunodeficiency [employer] Test 10:54:41 virus screening of Medicine (procedure) [code = 240229221] Future Scheduled 2021-05-27 ZOSTER VACCINE (1 of 2) [employer] 10:54:41 [code = ZOSTER VACCINE of Me dicine (1 of 2)] Future Scheduled 2021-05-27 Screening for malignant [facility] Test 10:54:41 neoplasm of breast of Medici ne (procedure) [code = 178265133] Future Scheduled 2021-05-27 FLU VACCINE > 6 MONTHS [employer] [facility] 10:54:41 [code = FLU VACCINE > 6 of M edicine MONTHS] Future Scheduled 2021-05-27 Screening for malignant [facility] Test 10:54:41 neoplasm of cervix of Medici ne (procedure) [code = 174967103] Future Scheduled 2021-05-27 TETANUS SHOT (ADULT) [place] [employer] [facility] 10:54:41 [code = TETANUS SHOT of Medi cine (ADULT)] Future Scheduled 2021-05-16 Screening for malignant [facility] Test 13:31:36 neoplasm of colon of Medicin e (procedure) [code = 975467964] Future Scheduled 2021-05-16 BMI FOLLOW UP PLAN [facility] [employer] Test 13:31:36 [code = BMI FOLLOW UP of Med icine PLAN] Future Scheduled 2021-05-16 Hepatitis C screening [facility] Test 13:31:36 (procedure) [code = of Medic ine 040569682] Future Scheduled 2021-05-16 Human immunodeficiency [facility] Test 13:31:36 virus screening of Medicine (procedure) [code = 609846561] Future Scheduled 2021-05-16 ZOSTER VACCINE (1 of 2) [facility] [employer] Test 13:31:36 [code = ZOSTER VACCINE of Me dicine (1 of 2)] Future Scheduled 2021-05-16 Screening for malignant [facility] Test 13:31:36 neoplasm of breast of Medici ne (procedure) [code = 964752523] Future Scheduled 2021-05-16 FLU VACCINE > 6 MONTHS [employer] Test 13:31:36 [code = FLU VACCINE > 6 of M edicine MONTHS] Future Scheduled 2021-05-16 Screening for malignant [facility] Test 13:31:36 neoplasm of cervix of Medici ne (procedure) [code = 874680149] Future Scheduled 2021-05-16 TETANUS SHOT (ADULT) [employer] [facility] 13:31:36 [code = TETANUS SHOT of Medi cine (ADULT)] Future Scheduled 2021-05-16 Screening for malignant [employer] Test 13:31:36 neoplasm of colon of Medicin e (procedure) [code = 555619256] Future Scheduled 2021-05-16 BMI FOLLOW UP PLAN [employer] Test 13:31:36 [code = BMI FOLLOW UP of Med icine PLAN] Future Scheduled 2021-05-16 Hepatitis C screening [employer] Test 13:31:36 (procedure) [code = of Medic ine 495295881] Future Scheduled 2021-05-16 Human immunodeficiency [facility] [employer] Test 13:31:36 virus screening of Medicine (procedure) [code = 616784165] Future Scheduled 2021-05-16 ZOSTER VACCINE (1 of 2) [facility] [employer] Test 13:31:36 [code = ZOSTER VACCINE of Me dicine (1 of 2)] Future Scheduled 2021-05-16 Screening for malignant [employer] Test 13:31:36 neoplasm of breast of Medici ne (procedure) [code = 051297337] Future Scheduled 2021-05-16 FLU VACCINE > 6 MONTHS [employer] Test 13:31:36 [code = FLU VACCINE > 6 of M edicine MONTHS] Future Scheduled 2021-05-16 Screening for malignant [facility] [employer] Test 13:31:36 neoplasm of cervix of Medici ne (procedure) [code = 953067233] Future Scheduled 2021-05-16 TETANUS SHOT (ADULT) [facility] [employer] Test 13:31:36 [code = TETANUS SHOT of Medi cine (ADULT)] Future Scheduled 2021-02-07 Screening for malignant [facility] [employer] Test 13:04:50 neoplasm of colon of Medicin e (procedure) [code = 226393294] Future Scheduled 2021-02-07 BMI FOLLOW UP PLAN [employer] Test 13:04:50 [code = BMI FOLLOW UP of Med icine PLAN] Future Scheduled 2021-02-07 Hepatitis C screening [employer] Test 13:04:50 (procedure) [code = of Medic ine 605944859] Future Scheduled 2021-02-07 Human immunodeficiency [facility] [employer] Test 13:04:50 virus screening of Medicine (procedure) [code = 800720554] Future Scheduled 2021-02-07 ZOSTER VACCINE (1 of 2) [facility] [employer] Test 13:04:50 [code = ZOSTER VACCINE of Me dicine (1 of 2)] Future Scheduled 2021-02-07 Screening for malignant [employer] Test 13:04:50 neoplasm of breast of Medici ne (procedure) [code = 099128335] Future Scheduled 2021-02-07 FLU VACCINE > 6 MONTHS [employer] Test 13:04:50 [code = FLU VACCINE > 6 of M edicine MONTHS] Future Scheduled 2021-02-07 Screening for malignant [facility] [employer] Test 13:04:50 neoplasm of cervix of Medici ne (procedure) [code = 646325669] Future Scheduled 2021-02-07 TETANUS SHOT (ADULT) [employer] [facility] 13:04:50 [code = TETANUS SHOT of Medi cine (ADULT)] Future Scheduled 2021-02-07 BASIC METABOLIC PANEL Ordered: [facility] [employer] Test 11:54:43 [code = 63292-9] 02/07/2021 of Medicine Diagnostic Test 2021-02-06 US RENAL BILATERAL Expected: [facility] Pending 00:00:00 [code = 26818] 02/06/2021 of Medicine (Approximate), Expires: 03/08/2021 Future Scheduled COLON CANCER SCREENING: [facility] Test COLONOSCOPY [code = of Medic ine COLON CANCER SCREENING: COLONOSCOPY] Future Scheduled BMI FOLLOW UP PLAN [employer] [facility] [code = BMI FOLLOW [...] MONTHS] Future Scheduled MAMMOGRAM ANNUAL [code [facility] [employer] Test = MAMMOGRAM ANNUAL] of Medic ine Future Scheduled CERVICAL CANCER [facility] [employer] Test SCREENING 3 YEAR FOLLOW of M edicine UP [code = CERVICAL CANCER SCREENING 3 YEAR FOLLOW UP] Future Scheduled TETANUS SHOT (ADULT) [employer] [facility] [code = TETANUS SHOT of Medi cine (ADULT)] Future Scheduled COLON CANCER SCREENING: [facility] Test COLONOSCOPY [code = of Medic ine [...] FOLLOW UP] Future Scheduled TETANUS SHOT (ADULT) [employer] [facility] [code = TETANUS SHOT of Medi cine (ADULT)] Future Scheduled LARYNGOSCOPY, FLEXIBLE Ordered: [employer] Test OR RIGID TELESCOPIC, 01/24/2020 of Medi cine WITH STROBOSCOPY [code = 02580] Future Scheduled [facility] FOLLOW UP] Future Scheduled TETANUS SHOT (ADULT) [employer] [facility] [code = TETANUS SHOT [...] FOLLOW UP] Future Scheduled TETANUS SHOT (ADULT) [employer] [facility] [code = TETANUS SHOT of Medi cine (ADULT)] Future Scheduled SUBLINGUAL Ordered: [facility] [employer] [facility] IMMUNOTHERAPY THERAPY 06/25/2020 of Med icine (SLIT) 16 TO 20 [code = SLIT20] Future Scheduled COLON CANCER SCREENING: [facility] Test COLONOSCOPY [code = of Medic ine COLON CANCER SCREENING: COLONOSCOPY] Future Scheduled BMI FOLLOW UP PLAN [facility] Test [code = BMI FOLLOW [...] 2)] Future Scheduled [facility] AN[facility]] of Medic ine Future Scheduled FLU VACCINE > 6 MONTHS [facility] Test [code = FLU VACCINE > 6 of M edicine MONTHS] Future Scheduled CERVICAL CANCER [facility] [employer] Test SCREENING 3 YEAR FOLLOW of M edicine UP [code = CERVICAL CANCER SCREENING 3 YEAR FOLLOW UP] Future Scheduled TETANUS SHOT (ADULT) [facility] Test [code = TETANUS SHOT of Medi cine (ADULT)] Encounters Start End Encounter Admission Attending Care Care Encounter Source Date/Time Date/Time Type Type Clinicians Facility Department ID 2021-06-11 Outpatient [facility] Surgery [id number] [facility] 15:11:30 TOMASZ 2021-09-25 2021-09-25 Office DYLAN Goetz 1.2.840.114 [id number] [facility] 15:30:00 16:30:03 Visit Lotus Canales AMBULATOR 350.1.13.21 College Y 0.2.7.2.686 of [id number] Medi ирина 800 e 2021-09-17 2021-09-17 Office DYLAN Cook 1.2.840.114 [id number] [facility] 11:00:00 13:33:01 Visit Talib Corrales AMBULATOR 350.1.13.21 College Y 0.2.7.2.686 of [id number] Medi ирина 805 e 2021-09-03 2021-09-03 Outpatient [facility] [id number] [facility] 10:46:45 10:46:45 Colleg e of Medicin e 2021-08-15 2021-08-15 Outpatient [facility] [id number] [facility] 10:42:59 10:42:59 Colleg e of Medicin e 2021-07-16 2021-07-16 Office DYLAN OSEI 1.2.840.114 [id number] [facility] 10:51:39 16:25:13 Visit ANSELMO AMBULATOR 350.1.13.21 College Y 0.2.7.2.686 of [id number] Medi ирина 805 e 2021-07-10 2021-07-10 Office TIFFANI [facility] 1.2.840.114 [id number] [facility] 11:16:59 13:49:14 Visit AMBULATOR 350.1.13.21 College Y 0.2.7.2.686 of [id number] Medi ирина 305 e 2021-06-03 2021-06-03 Office DYLAN Villar 1.2.840.114 [id number] [facility] 10:14:41 11:11:08 Visit Kasey AMBULATOR 350.1.13.21 College Mar[employer] Y 0.2.7.2.686 of [id number] Medi ирина 800 e 2021-05-27 2021-05-27 Office Tiffani [facility] 1.2.840.114 [id number] [facility] 10:56:01 12:39:50 Visit AMBULATOR 350.1.13.21 College Y 0.2.7.2.686 of [id number] Medi ирина 305 e 2021-05-16 2021-05-16 Office DYLAN Osei 1.2.840.114 [id number] [facility] 10:56:27 12:33:20 Visit Anselmo AMBULATOR 350.1.13.21 College Y 0.2.7.2.686 of [id number] Medi ирина 805 e 2021-05-07 2021-05-07 Outpatient DYLAN UMAÑA [facility] [id number] [facility] 12:44:56 13:01:48 SOLEDAD schilling of Medicin e 2021-02-07 2021-02-07 Outpatient [facility] [id number] [facility] 10:26:05 15:05:23 Colleg e of Medicin e 2021-02-07 2021-02-07 Office DYLAN WOODSON 1.2.840.114 [id number] [facility] 10:27:03 12:13:07 Visit JAN AMBULATOR 350.1.13.21 College Y 0.2.7.2.686 of [id number] Medi ирина 300 e 2021-01-28 2021-01-28 Outpatient Ally MEYERS [facility] [id number] [employer] 12:30:00 12:30:00 [address] [facility] 2021-01-07 2021-01-07 Outpatient [facility] [id number] [employer] 13:40:00 13:40:00 [facility] 2020-08-20 2020-08-20 Outpatient DYLAN [facility]IS[facility] [id number] [facility] 12:41:10 12:41:22 ANDREEA Ferrell e of Medicin e 2020-06-25 2020-06-25 Office DYLAN Carlisle 1.2.840.114 [id number] 16:00:00 16:30:00 Visit Andreea AMBULATOR 350.1.13.21 Nita Y 0.2.7.2.686 [id number] 800 2020-06-25 2020-06-25 Office DYLAN Carlisle 1.2.840.[id number] [place] [address] 16:00:00 16:30:00 Visit Andreea AMBULATOR 350.1.13.21 College Nita Y 0.2.7.2.686 of [id number] Medi ирина 800 e 2020-02-07 2020-02-07 Office DYLAN Woodson 1.2.840.114 [id number] 10:24:35 12:31:37 Visit Jan Valentino AMBULATOR 350.1.13.21 Y 0.2.7.2.686 [id number] 300 2020-02-07 2020-02-07 Office DYLAN Woodson 1.2.840.114 [id number] [facility] 10:24:35 12:31:37 Visit Jan Valentino AMBULATOR 350.1.13.21 College Y 0.2.7.2.686 of [id number] Medi ирина 300 e 2020-02-01 2020-02-01 Outpatient [facility] [id number] SLE 00:00:00 00:00:00 2020-01-24 2020-01-24 Office JULIAN LoboLisa 1.2.840.114 [id number] [facility] 10:42:41 11:57:01 Visit Anselmo AMBULATOR 350.1.13.21 College Y 0.2.7.2.686 of [id number] Medi ирина 800 e 2019-11-18 2019-11-18 Office DYLAN Carlisle 1.2.840.114 [id number] [facility] 09:16:59 09:46:59 Visit Andreea AMBULATOR 350.1.13.21 College Nita Y 0.2.7.2.686 of [id number] Medi ирина 800 e 2019-11-15 2019-11-15 Office LashellJULAIN paredesLisa 1.2.840.114 [id number] [facility] 10:44:59 11:43:03 Visit Anselmo AMBULATOR 350.1.13.21 College Y 0.2.7.2.686 of [id number] Medi ирина 800 e Results Test Description Test Time Test Comments Results Result Comments Source POCT URINALYSIS DIPSTICK 2021-02-07 00:00:00 Test Item Value Reference Range Interpretation Comme nts COLOR UA (test code = 5778-6) Yellow YELLOW/STRAW CLARITY UA (test code = 91629-3) Clear CLEAR GLUCOSE UA (test code = 5792-7) Negative NEGATIVE BILIRUBIN UA (test code = 5770-3) Negative NEGATIVE KETONES UA (test code = 84982-4) Negative NEGATIVE SPECIFIC GRAVITY UA (test code [...] NEGATIVE REDUCING SUBSTANCES URINE (test code = 84556-3) [facility],[id number] 00:00:00 Test Item Value Reference Range Interpretation Comments PVR (test code = 6116) cc/ml [facility] [id number] 09:46:00Surgical Pathology Report Case: [id number] Authorizing Provider: Tomasz Carlos, Collected: 03/01/2020 12:28 PM OrderingLocation[facility] Received: 03/01/2020 02:54 PM SERVICES Pathologist: Martha Slater MD Specimens: A) - Biopsy, Gastric, random via forcep B) - Polyp, Gastric, via forcep A. STOMACH, RANDOM BIOPSIES: - CHRONIC INACTIVE GASTRITISB. STOMACH, POLYPECTOMY: - FUNDIC GLAND POLYPNZK/pl Signing Pathologist Direct Phone Line: [phone] signed by Martha Slater MD on 03/02/2020 at 9:46 [id number] reflux disease, esophagitis presence not specified [K21.9],Epigastric [...] and submitted in toto in B1.DESIREE Rouse (ASCP)transport manager. Gastric biopsies have antral and oxyntic mucosa [...] negative controls when available are evaluated.BASIC METABOLIC [id number] 11:07:56 Test Item Value Reference Range Interpretation [...] code = See_Comment [Autom ated message] The 30946-5) system which ge nerated this result tra nsmitted reference range : >60 ML/MIN/1.73. Th e reference range was not used to interpr et this result as normal/abnormal . EGFR (test code = See_Comment [Automate d message] The 70506-6) system which ge nerated this result tra [...] code = See_Comment [Aut omated message] The 2823-3) system which ge nerated this result tra [...] CALCIUM (test code = See_Comment Unless Otherwise 39206-0) Indicated, All Testing Performed At: Clinical Pathol ogy [facility], [address] [place] [id number] Laboratory D irector: Santiago reyes M.D. CLIA Number [id number] [employer] Accreditation N o. 66136-16 [Auto mated message] The sy stem which generated this result transmitted ref erence range: 8.5 - 10 .5 MG/DL. The reference r michelle was not used to int erpret this result as normal/abnormal . [facility] FLEXIBLE; [id number] 17:55:00 IMAGES ARE AVAILABLE FOR VIEWING.[facility]
[2021-11-11] MEDS ORDERED: KETOROLAC 30 MG/ML INJ ONE (13:38)
--- NOTE | 2021-11-11 13:38 | RAD REPORT ---
EXAM DESCRIPTION: CT - Stone Protocol - 11/11/2021 1:22 pm CLINICAL HISTORY: Flank pain. back pain COMPARISON: Abdomen Pelvis W Contrast dated 08/11/2021 TECHNIQUE: Axial images were obtained without oral or IV contrast. Lack of contrast limits solid org an and vascular assessment. The hrqqy-av-yync spans the entirety of the system partially obscuring uppermost abdomen and lung bases. Coronal reformatted images were obtained and reviewed. All CT scans are performed using dose optimization technique as appropriate and may include automated exposure control or mA/KV adjustment according to patient size. FINDINGS: The lower lung [place] are clear. Imaged portions of the liver and spleen show no suspicious findings on non-contrast imaging. The panc reas and adrenal glands are normal. No pathologic lymphadenopathy in the abdomen or pelvis. No urinary tract stones or obstructive uropathy. Multiple parapelvic cysts are present bilaterally, g reater on the left. No bowel obstruction, free air, free fluid or abscess. Normal appendix noted.Small fat containing umb ilical hernia. No significant bony abnormality. IMPRESSION: No urinary tract stones or obstructive uropathy. Multiple parapelvic cysts, benign in appearance, bilaterally.
[2021-11-11 13:52] LABS: Urine Blood Trace-intact (Negative); Urine Glucose Negative (Negative); Urine Protein Trace (Negative); Urine Specific Gravity >=1.030 (1.005-1.030)
[2021-11-11] MEDS ORDERED: MORPHINE 4 MG/ML SYR ONE (14:15)
[2021-11-11] MEDS ORDERED: ONDANSETRON 4 MG (ODT) TAB ONE (14:16)
--- NOTE | 2021-11-11 14:53 | ER ---
Nurse's Notes [facility] Name: Andree Rene Age: 61 yrs Sex: Female : 1960 Arrival Date: 11/11/2021 Time: 12:43 Bed 12 Private MD: Diagnosis: Low back pain Presentation: 11/11 12:46 Chief complaint: Patient states: "I have had back pain for the past 15 days. I was ab2 lifting something heavy and it has been hurting since." Pt denies any urinary symptoms. Coronavirus screen: Vaccine status: Patient reports receiving the 2nd dose of the covid vaccine. Client denies travel out of the [place] in the last 14 days. At this time, the client does not indicate any symptoms associated with coronavirus-19. Ebola Screen: Patient negative for fever greater than or equal to 101.5 degrees Fahrenheit, and additional compatible Ebola Virus Disease symptoms Patient denies exposure to infectious person. Patient denies travel to an Ebola-affected area in the 21 days before illness onset. No symptoms or risks identified at this time. Initial Sepsis Screen: Does the patient meet any 2 criteria? No. Patient's initial sepsis screen is negative. Does the patient have a suspected source of infection? No. Patient's initial sepsis screen is negative. Risk Assessment: Do you want to hurt yourself or someone else? Patient reports no desire to harm self or others. Onset of symptoms is unknown. 12:46 Method Of Arrival: Ambulatory ab2 12:46 Acuity: LACIE 4 ab2 Historical: - Allergies: 12:49 Codeine; ab2 12:49 PENICILLINS; ab2 - Home Meds: 12:49 alendronate Oral [Active]; Flonase Nasal [Active]; potassium citrate Oral [Active]; ab2 Trazodone Oral [Active]; cetirizine Oral [Active]; duloxetine Oral [Active]; montelukast Oral [Active]; Omeprazole Oral [Active]; - PMHx: 12:49 Anxiety; chronic back pain; GERD; ab2 - Immunization history:: Adult Immunizations up to date. - Social history:: Smoking status: Patient denies any tobacco usage or history of. Screenin:52 Abuse screen: Denies threats or abuse. Denies injuries from another. Nutritional ab2 screening: No deficits noted. Tuberculosis screening: No symptoms or risk factors identified. Fall Risk None identified. Assessment: 12:50 General: Appears in no apparent distress. comfortable, Behavior is calm, cooperative, ab2 appropriate for age. Pain: Complains of pain in low back area Pain currently is 10 out of 10 on a pain scale. Neuro: No deficits noted. Level of Consciousness is awake, alert, obeys commands, Oriented to person, place, time, situation, Appropriate for age Marketing Development Representative are equal bilaterally Moves all extremities. Gait is steady, Speech is normal, Facial symmetry appears normal. Cardiovascular: No deficits noted. Denies chest pain, shortness of breath, Heart tones S1 S2 present Patient's skin is warm and dry. Respiratory: No deficits noted. Airway is patent Respiratory effort is even, unlabored, Respiratory pattern is regular, symmetrical, Breath sounds are clear bilaterally. Denies cough, shortness of breath. GI: No deficits noted. No signs and/or symptoms were reported involving the gastrointestinal system. Abdomen is round non-distended, Bowel sounds present X 4 quads. Patient currently denies abdominal pain. : No deficits noted. No signs and/or symptoms were reported regarding the genitourinary system. Denies burning with urination, inability to void, urinary frequency, urgency. EENT: No deficits noted. No signs and/or symptoms were reported regarding the EENT system. Derm: No deficits noted. No signs and/or symptoms reported regarding the dermatologic system. Skin is intact, is healthy with good turgor, Skin is pink, warm \\T\\ dry. Musculoskeletal: Reports pain in low back area since 15 days. Injury Description: Pt states she was lifting something heavy and her back has been hurting since then. 14:18 Reassessment: Patient appears in no apparent distress at this time. Results back. ss Awaiting disposition. Pt appears uncomfortable. Is thankful for medication received. remains at bedside. Vital Signs: 12:46 BP 122 / 57; Pulse 80; Resp 16; Temp 98.1(TE); Pulse Ox 100% ; Weight 78.47 kg; Height ab2 5 ft. 3 in. (160.02 cm); Pain 10/10; 12:46 Body Mass Index 30.65 (78.47 kg, 160.02 cm) ab2 ED Course: 12:43 Patient arrived in ED. rg4 12:49 Triage completed. ab2 12:52 Arm band placed on left wrist. ab2 12:52 Patient has correct armband on for positive identification. Bed in low position. Call ab2 light in reach. Side rails up X2. Adult w/ patient. 12:52 No provider procedures requiring assistance completed. ab2 12:56 Jaydon Hussein PA is PHCP. [facility] 12:56 Bria Garnett MD is Attending Physician. [facility] 13:21 CT Stone Protocol In Process Unspecified. EDMS 14:14 Lucille Enriquez, BACILIO is Primary Nurse. ss 15:07 Patient did not have IV access during this emergency room visit. ss Administered Medications: 13:54 Not Given (Patient Refused): Ketorolac 30 mg IM once ab2 14:14 Drug: Zofran (Ondansetron) 4 mg Route: PO; ss 15:07 Follow up: Response: No adverse reaction ss 14:18 Drug: morphine 4 mg Route: IM; Site: left gluteus; ss 15:07 Follow up: Response: No adverse reaction; Pain is decreased ss Outcome: 14:52 Discharge ordered by . [facility] 15:07 Discharged to home ambulatory. ss 15:07 Condition: good 15:07 Discharge instructions given to patient, Instructed on discharge instructions, follow up and referral plans. Demonstrated understanding of instructions, follow-up care, Prescriptions given X 3. 15:10 Patient left the ED. ss Signatures: Dispatcher [employer] EDMS Jaydon Hussein PA PA Lucille Diallo, BACILIO RN Whitney Adam rg4 Romero Chavez ab2
--- NOTE | 2021-11-11 14:53 | EDPHYS ---
Physician Documentation [facility] Name: Andree Rene Age: 61 yrs Sex: Female : 1960 Arrival Date: 11/11/2021 Time: 12:43 Bed 12 Private MD: ED Physician Bria Garnett HPI: 11/11 13:08 This 61 yrs old Female presents to ER via Ambulatory with complaints of Back jmm Pain. 13:08 The patient presents with pain that is acute. The symptoms are located in the coccyx jmm area. Onset: The symptoms/episode began/occurred acutely, 13 day(s) ago. The pain does not radiate. Associated signs and symptoms: Pertinent negatives: abdominal pain, chest pain, constipation, dysuria, fever, headache, hematuria, incontinence, nausea, numbness, tingling, urinary retention, vomiting, weakness. The problem was sustained when bending over. This is a 61-year-old female with a history of chronic back pain, GERD, anxiety the presents emerged part with lower back pain bleeding after bending over approximately 13 days ago. Pain does not radiate. Patient denies fever or numbness. Patient denies dysuria. Patient denies fever.. Historical: - Allergies: 12:49 Codeine; ab2 12:49 PENICILLINS; ab2 - Home Meds: 12:49 alendronate Oral [Active]; Flonase Nasal [Active]; potassium citrate Oral [Active]; ab2 Trazodone Oral [Active]; cetirizine Oral [Active]; duloxetine Oral [Active]; montelukast Oral [Active]; Omeprazole Oral [Active]; - PMHx: 12:49 Anxiety; chronic back pain; GERD; ab2 - Immunization history:: Adult Immunizations up to date. - Social history:: Smoking status: Patient denies any tobacco usage or history of. ROS: 13:08 Constitutional: Negative for fever, chills, and weight loss, Cardiovascular: Negative jmm for chest pain, palpitations, and edema, Respiratory: Negative for shortness of breath, cough, wheezing, and pleuritic chest pain. 13:08 Back: Positive for pain with movement. 13:08 All other systems are negative. Exam: 13:08 Constitutional: This is a well developed, well nourished patient who is awake, alert, jmm and in no acute distress. Head/Face: atraumatic. Eyes: EOMI, no conjunctival erythema appreciated ENT: Moist Mucus Membranes Neck: Trachea midline, Supple Chest/axilla: Normal chest wall appearance and motion. Cardiovascular: Regular rate and rhythm. No edema appreciated Respiratory: Normal respirations, no respiratory distress appreciated Abdomen/GI: Non distended, soft 13:08 Back: pain, that is moderate, of the sacrum. 13:08 Musculoskeletal/extremity: ROM: intact in all extremities. 13:08 Skin: Appearance: Color: normal in color. 13:08 Neuro: Orientation: is normal, Mentation: is normal, Memory: is normal, Extensor hallucis longus intact bilaterally. 13:08 Psych: Behavior/mood is pleasant, cooperative. Vital Signs: 12:46 BP 122 / 57; Pulse 80; Resp 16; Temp 98.1(TE); Pulse Ox 100% ; Weight 78.47 kg; Height ab2 5 ft. 3 in. (160.02 cm); Pain 10/10; 12:46 Body Mass Index 30.65 (78.47 kg, 160.02 cm) ab2 MDM: 13:08 Patient medically screened. [facility] 14:51 Data reviewed: vital signs, nurses notes. Counseling: I had a detailed discussion with [facility] the patient and/or guardian regarding: the historical points, exam findings, and any diagnostic results supporting the discharge/admit diagnosis, radiology results, the need for outpatient follow up, to return to the emergency department if symptoms worsen or persist or if there are any questions or concerns that arise at home. ED course: Patient is patient is alert nontoxic in appearance in the ED. I do not suspect cord compression, cauda equina, spinal abscess. Patient advised follow-up pain management for further evaluation. I do have some concerns of pilonidal cyst, but there does not appear to be any signs of swelling or infection at the area of maximal pain. Advised to initially follow-up with pain management for further evaluation.. 11/11 13:52 Order name: Urine Dipstick-Ancillary; Complete Time: 13:55 EDMS 11/11 13:10 Order name: CT Stone Protocol; Complete Time: 13:39 [facility] 11/11 13:10 Order name: Urine Dipstick-Ancillary (obtain specimen); Complete Time: 13:52 [facility] Administered Medications: 13:54 Not Given (Patient Refused): Ketorolac 30 mg IM once ab2 14:14 Drug: Zofran (Ondansetron) 4 mg Route: PO; ss 15:07 Follow up: Response: No adverse reaction ss 14:18 Drug: morphine 4 mg Route: IM; Site: left gluteus; ss 15:07 Follow up: Response: No adverse reaction; Pain is decreased ss Disposition Summary: 11/11/21 14:52 Discharge Ordered Location: Home [facility] Condition: Stable [facility] Diagnosis - Low back pain [facility] Followup: [facility] - With: Private Physician - When: 2 - 3 days - Reason: Recheck today's complaints, Continuance of care, Re-evaluation by your physician Discharge Instructions: - Discharge Summary Sheet [facility] - Acute Back Pain, Adult [facility] Forms: - Medication Reconciliation Form [facility] - Thank You Letter [facility] - Antibiotic Education [facility] - Prescription Opioid Use [facility] Prescriptions: - Pepcid 20 mg Oral Tablet - take 1 tablet by ORAL route every 12 hours for 10 days; 20 tablet; Refills: 0, [facility] Product Selection Permitted - Prednisone 20 mg Oral Tablet - take 3 tablets by ORAL route once daily for 5 days; 15 tablet; Refills: 0, [facility] Product Selection Permitted - Zanaflex 4 mg Oral Tablet - take 1 tablet by ORAL route every 8 hours As needed; 20 tablet; Refills: 0, [facility] Product Selection Permitted Signatures: Dispatcher [employer] Jaydon Saavedra PA PA Lucille Diallo RN RN Romero Kumar ab2
[2021-11-11 16:18] VITALS: BP 122/57; TEMP 98.1; O2SAT 100
== END 2021-11-11 15:10 | disposition home or self-care (01) ==
LOC: ER 12:42
DX: M54.50 Low back pain, unspecified (principal); F41.9 Anxiety disorder, unspecified; Z88.0 Allergy status to penicillin; Z88.5 Allergy status to narcotic agent
CPT/HCPCS: 74176; 76377; 81003; 96372; 99283

== ENCOUNTER → 2023-11-26 | Emergency (ER) | payer OTHER ==
[~2023-11-26] MED LIST: LIDOCAINE 1% MPF 5 ML VIAL ONE; TDAP (DIPHTH,PERTUSS(ACELL),TET VAC) 0.5 ML VIAL IMVAC ONE
--- NOTE | 2023-11-26 18:22 | EDPHYS ---
Physician Documentation [facility] Name: Andree Rene Age: 63 yrs Sex: Female : 1960 Arrival Date: 11/26/2023 Time: 17:00 Bed 9 Private MD: ED Physician Hugh Hammond HPI: 11/25 18:16 This 63 yrs old Female presents to ER via Ambulatory with complaints of emmy Laceration To Hand - FINGER. 18:16 The patient has a laceration related to: cooking, occurred at home. The laceration(s) emmy is(are) located on the palmar aspect of distal phalanx of right ring finger. Historical: - Allergies: 17:12 Codeine; kd3 17:12 PENICILLINS; kd3 - PMHx: 17:12 chronic back pain; Anxiety; GERD; kd3 - Immunization history:: Adult Immunizations up to date. - Social history:: Smoking status: Patient denies any tobacco usage or history of. - Family history:: not pertinent. ROS: 18:16 Constitutional: Negative for fever, chills, and weight loss, Eyes: Negative for injury, emmy pain, redness, and discharge, ENT: Negative for injury, pain, and discharge, Neck: Negative for injury, pain, and swelling, Cardiovascular: Negative for chest pain, palpitations, and edema, Respiratory: Negative for shortness of breath, cough, wheezing, and pleuritic chest pain, Abdomen/GI: Negative for abdominal pain, nausea, vomiting, diarrhea, and constipation, Back: Negative for injury and pain, : Negative for injury, bleeding, discharge, and swelling, Skin: Negative for injury, rash, and discoloration, Neuro: Negative for headache, weakness, numbness, tingling, and seizure, Psych: Negative for depression, anxiety, suicide ideation, homicidal ideation, and hallucinations, Allergy/Immunology: Negative for hives, rash, and allergies, Endocrine: Negative for neck swelling, polydipsia, polyuria, polyphagia, and marked weight changes, Hematologic/Lymphatic: Negative for swollen nodes, abnormal bleeding, and unusual bruising, 18:16 MS/extremity: Positive for laceration, of the palmar aspect of distal phalanx of right ring finger, Exam: 18:16 Constitutional: This is a well developed, well nourished patient who is awake, alert, emmy and in no acute distress. Head/Face: Normocephalic, atraumatic. Eyes: Pupils equal round and reactive to light, extra-ocular motions intact. Lids and lashes normal. Conjunctiva and sclera are non-icteric and not injected. Cornea within normal limits. Periorbital areas with no swelling, redness, or edema. ENT: Nares patent. No nasal discharge, no septal abnormalities noted. Tympanic membranes are normal and external auditory canals are clear. Oropharynx with no redness, swelling, or masses, exudates, or evidence of obstruction, uvula midline. Mucous membranes moist. Neck: Trachea midline, no thyromegaly or masses palpated, and no cervical lymphadenopathy. Supple, full range of motion without nuchal rigidity, or vertebral point tenderness. No Meningismus. Chest/axilla: Normal chest wall appearance and motion. Nontender with no deformity. No lesions are appreciated. Cardiovascular: Regular rate and rhythm with a normal S1 and S2. No gallops, murmurs, or rubs. Normal PMI, no JVD. No pulse deficits. Respiratory: Lungs have equal breath sounds bilaterally, clear to auscultation and percussion. No rales, rhonchi or wheezes noted. No increased work of breathing, no retractions or nasal flaring. Abdomen/GI: Soft, non-tender, with normal bowel sounds. No distension or tympany. No guarding or rebound. No evidence of tenderness throughout. Back: No spinal tenderness. No costovertebral tenderness. Full range of motion. Skin: Warm, dry with normal turgor. Normal color with no rashes, no lesions, and no evidence of cellulitis. Neuro: Awake and alert, GCS 15, oriented to person, place, time, and situation. Cranial nerves II-XII grossly intact. Motor strength 5/5 in all extremities. Sensory grossly intact. Cerebellar exam normal. Normal gait. Psych: Awake, alert, with orientation to person, place and time. Behavior, mood, and affect are within normal limits. 18:16 Musculoskeletal/extremity: Extremities: grossly normal except: noted in the palmar aspect of distal phalanx of right ring finger: laceration, Vital Signs: 17:10 BP 152 / 99; Pulse 80; Resp 18; Temp 98.2(TE); Pulse Ox 97% on R/A; Weight 78.47 kg; kd3 Height 5 ft. 2 in. ; 18:53 BP 127 / 78; Pulse 68; Resp 18; Pulse Ox 100% on R/A; kd3 17:10 Body Mass Index 31.64 (78.47 kg, 157.48 cm) kd3 MDM: 17:13 Patient medically screened. emmy 18:18 Differential diagnosis: superficial laceration, SKIN AND SOFT TISSUE AVULSION. Data emmy reviewed: vital signs, nurses notes. Consideration of Admission/Observation Escalation of care including admission/observation considered. I considered the following discharge prescriptions or medication management in the emergency department Medications were administered in the Emergency Department. See MAR. Test considered but Not performed: X-ray: NO X RAY, NO BLOOD WORK. Historians other than the Patient: Spouse/Significant Other: WELL INFORMED. Care significantly affected by the following chronic conditions: CBP, ANXIETY, GERD. 11/25 18:16 Order name: Wound Care; Complete Time: 18:52 emmy Administered Medications: 17:32 Drug: Boostrix Tdap IM 0.5 ml IM once; as a single dose Route: IM; Site: left deltoid; kd3 18:53 Follow up: Response: (VIS) Vaccine information sheet provided today. Questions and/or kd3 concerns addressed. VIS edition date: Apr 12, 2021.; No adverse reaction 18:51 Drug: Kfjlfcvb-Mpudhcfisr-Vxfmkqigy Topical Ointment 1 application Topical once Route: kd3 Topical; Site: wound; 18:53 Follow up: Response: No adverse reaction kd3 Disposition Summary: 11/26/23 18:21 Discharge Ordered Notes: Location: Home emmy Problem: new emmy Symptoms: have improved emmy Condition: Stable emmy Diagnosis - Laceration without foreign body of right hand, initial encounter - RING FINGER TIP emmy , AVULSION, NOT SUTURABLE Followup: emmy - With: Private Physician - When: 2 - 3 days - Reason: Recheck today's complaints, Continuance of care, Re-evaluation by your physician Followup: emmy - With: Patel Osborne MD - When: 2 - 3 days - Reason: Recheck today's complaints, Continuance of care, Re-evaluation by your physician Discharge Instructions: - Discharge Summary Sheet emmy - Delayed Wound Closure emmy - How to Change Your Wound Dressing emmy - Laceration Care, Adult emmy - Nonsutured Laceration Care emmy - Laceration Care, Adult, [id number]-nw-[id number] emmy - Wound Care, Adult emmy - How to Change Your Wound Dressing, Yfww-cb-[id number] emmy Forms: - Medication Reconciliation Form emmy - Thank You Letter emmy - Antibiotic Education emmy - Prescription Opioid Use emmy - Patient Portal Instructions emmy - Leadership Thank You Letter emmy Prescriptions: - Centany 2 % Topical ointment - apply 1 application TOPICAL route 3 times per day; 15 gram tube; Refills: 0, emmy Product Selection Permitted Signatures: Hugh Hammond MD MD cha Doucette, Kyli RN RN kd3 Veda Herrera RN RN [id number]
--- NOTE | 2023-11-26 18:22 | ER ---
Nurse's Notes [facility] Name: Andree Rene Age: 63 yrs Sex: Female : 1960 Arrival Date: 11/26/2023 Time: 17:00 Bed 9 Private MD: Diagnosis: Laceration without foreign body of right hand, initial encounter-RING FINGER TIP , AVULSION, NOT SUTURABLE Presentation: 11/25 17:10 Chief complaint: Patient states: I was slicing a potato with a knife and i sliced my kd3 right ring finger on the tip. Coronavirus screen: Vaccine status: Patient reports receiving the 2nd dose of the covid vaccine. Ebola Screen: No symptoms or risks identified at this time. Complicating Factors: There are no complicating factors for this patient. Initial Sepsis Screen: Does the patient meet any 2 criteria? No. Patient's initial sepsis screen is negative. Does the patient have a suspected source of infection? No. Patient's initial sepsis screen is negative. Risk Assessment: Do you want to hurt yourself or someone else? Patient reports no desire to harm self or others. Onset of symptoms was November 26, 2023. 17:10 Method Of Arrival: Ambulatory kd3 17:10 Acuity: LACIE 4 kd3 Triage Assessment: 17:12 General: Appears in no apparent distress. Behavior is calm, cooperative. Pain: kd3 Complains of pain in palmar aspect of distal phalanx of right ring finger. Injury Description: Laceration sustained to palmar aspect of distal phalanx of right ring finger. Historical: - Allergies: 17:12 Codeine; kd3 17:12 PENICILLINS; kd3 - PMHx: 17:12 chronic back pain; Anxiety; GERD; kd3 - Immunization history:: Adult Immunizations up to date. - Social history:: Smoking status: Patient denies any tobacco usage or history of. - Family history:: not pertinent. Screenin:[address] [facility] ED Fall Risk Assessment (Adult) History of falling in the last 3 months, kd3 including since admission No falls in past 3 months (0 pts) Confusion or Disorientation No (0 pts) Intoxicated or Sedated No (0 pts) Impaired Gait No (0 pts) Mobility Assist Device Used No (0 pt) Altered Elimination No (0 pt) Score/Fall Risk Level 0 - 2 = Low Risk Maintained a safe environment. Abuse screen: Denies threats or abuse. Denies injuries from another. Nutritional screening: No deficits noted. Tuberculosis screening: No symptoms or risk factors identified. Assessment: 18:52 Injury Description: Laceration is clean. kd3 18:52 Musculoskeletal: No deficits noted. kd3 Vital Signs: 17:10 BP 152 / 99; Pulse 80; Resp 18; Temp 98.2(TE); Pulse Ox 97% on R/A; Weight 78.47 kg; kd3 Height 5 ft. 2 in. ; 18:53 BP 127 / 78; Pulse 68; Resp 18; Pulse Ox 100% on R/A; kd3 17:10 Body Mass Index 31.64 (78.47 kg, 157.48 cm) kd3 ED Course: 17:02 Patient arrived in ED. mg5 17:10 Nel Ramey, RN is Primary Nurse. kd3 17:12 Triage completed. kd3 17:12 Arm band placed on. kd3 17:13 Hugh Hammond MD is Attending Physician. [facility] 18:20 Patel Osborne MD is Referral Physician. [facility] 18:52 Patient has correct armband on for positive identification. Provided Education on: . kd3 18:52 No provider procedures requiring assistance completed. Patient did not have IV access kd3 during this emergency room visit. Administered Medications: 17:32 Drug: Boostrix Tdap IM 0.5 ml IM once; as a single dose Route: IM; Site: left deltoid; kd3 18:53 Follow up: Response: (VIS) Vaccine information sheet provided today. Questions and/or kd3 concerns addressed. VIS edition date: Apr 12, 2021.; No adverse reaction 18:51 Drug: Mbotkvow-Epgxczqnrs-Uxjydazlx Topical Ointment 1 application Topical once Route: kd3 Topical; Site: wound; 18:53 Follow up: Response: No adverse reaction kd3 Outcome: 18:21 Discharge ordered by . [facility] 18:52 Discharged to home ambulatory, kd3 18:52 Condition: stable 18:52 Discharge instructions given to patient, family, Instructed on discharge instructions, follow up and referral plans. Demonstrated understanding of instructions, follow-up care, medications, Prescriptions given X 1, 18:53 Patient left the ED. kd3 Signatures: Hugh Hammond MD MD cha Doucette, Kyli, RN RN kd3 Janelle Guy mg5
[2023-11-26 19:07] VITALS: BP 127/78; TEMP 98.2; O2SAT 100
== END ==
LOC: ER 17:00
DX: S61.214A Laceration without foreign body of right ring finger without damage to nail, initial encounter (principal); Z88.0 Allergy status to penicillin; Z88.5 Allergy status to narcotic agent
CPT/HCPCS: 96372; 99284; J2001